=== PATIENT | male | born 1940 | race Caucasian/White ===

== ENCOUNTER → 2017-05-05 10:13 | Outpatient (CLI) | payer MEDICARE, SELFPAY ==
--- NOTE | 2017-05-05 10:18 | NM_ITS ---
CLINICAL: 77-year-old male presenting for evaluation of differential renal function. 99m Tc MAG3 RENAL SCINTIGRAPHY COMPARISON: None available FINDINGS: Following the intravenous administration of 10.8 mCi of 99m Tc MAG3, renal images reveal: 1. The flow study demonstrates mildly delayed arterial phase distribution of the radiopharmaceutical to the left kidney. Flow to the significantly hypotrophic right renal unit is significantly delayed and decreased. 2. Immediate static delayed nephrogram images depict relatively prompt tracer concentration demonstrated in the left kidney with markedly delayed and decreased uptake visualized the right kidney. Collecting structure visualization is identified at approximately 4 minutes following tracer injection and the left kidney and 5.5 minutes following tracer injection regarding the right renal unit. Washout of the radiopharmaceutical by the renal parenchyma of the left kidney appears qualitatively normal and delayed on inspection of the right kidney. Persisting collecting system activity is demonstrated in the right and left renal units during 40 minutes of sequential image acquisition. 3. The xtbqu-eb-[id number] ratio of total renal parenchymal function was calculated to be 6.0/94.0. NM/Renal Scan w/o Pharm Interven IMPRESSION: 1. There is relative preservation of left kidney renal parenchymal, cortical function. Cortical dysfunction is defined in the significantly hypotrophic right kidney as described above. Electronically Signed: Farshad Abrams DO at 13:11 EST Tel , Service support ,
== END ==
PROVIDERS: Family Provider Family Medicine; PCP Family Medicine
DX: I71.4 Abdominal aortic aneurysm, without rupture (principal)
CPT/HCPCS: 78707; A9562

== ENCOUNTER 2017-07-08 01:54 | Emergency (ER) | payer OTHER, SELFPAY ==
[2017-07-08 01:55] VITALS: BP 141/89; PULSE 66; RESP 16; TEMP 37.1; O2SAT 99; BMI 23.5
--- NOTE | 2017-07-08 02:10 | RAD_ITS ---
STUDY: X-RAY CHEST REASON FOR EXAM: Male, 77 years old. Defibrillator TECHNIQUE: PA and lateral COMPARISON: None. FINDINGS: Pacemaker leads are in proper position. The lungs are clear and expanded. There is no demonstrated pleural abnormality. Normal size heart. Normal mediastinum and jose carlos. Normal visualized pulmonary arteries. Normal visualized aortic arch and descending thoracic aorta. Normal visualized thoracic spine. Normal visualized ribs, clavicles, and shoulders. There is no demonstrated abnormality of the visualized soft tissue structures of the upper abdomen. RAD/Chest PA and Lateral IMPRESSION: Lungs are clear. There are NO infiltrates. There are NO effusions or pneumothoraces. Pacemaker leads are in proper position. Electronically Signed: Atul Richardson MD at 2:53 EDT , Service support ,
--- NOTE | 2017-07-08 02:10 | EKG12_ITS ---
Test Reason : CHEST Blood Pressure : / mmHG Vent. Rate : 064 BPM Atrial Rate : 064 BPM P-R Int : 112 ms QRS Dur : 186 ms QT Int : 524 ms P-R-T Axes : 084 -76 103 degrees QTc Int : 540 ms Atrial-sensed ventricular-paced rhythm Biventricular pacemaker detected Abnormal ECG Confirmed by NERI VICTORIA, FARAZ ([id number]), editor producer REGINA GONZALEZ ([id number]) on 07/09/2017 11:51:48 AM Referred By: QASIM Confirmed By:FARAZ HE MD
--- NOTE | 2017-07-08 02:12 | ED.VISSUMM ---
- ER Visit Summary Date of Service: 07/08/17 Chief Complaint: Defibrillator firing History of Present Illness: The patient is a 77 M presents for concerns of defibrillator firing approximately 15 minutes prior to arrival. Patient was asleep when he felt symptoms. History of congestive heart failure followed by Dr. Clarke. Original AICD was placed in 2006, states this new one has been placed in April 2016. Previous ICD has fired while he was awakened. Denies any current chest pain. No recent chest pain symptoms. No recent upper respiratory symptoms. No recent nausea, vomiting, diarrhea. Currently asymptomatic. Device is a [employer] device. Physical Examination: General: Alert and oriented ?3, no acute distress HEENT: Normocephalic, atraumatic. Moist mucosa membranes Neck: supple, nontender. Cardiovascular: Regular rate and rhythm, no murmurs. Device in the left upper chest. Respiratory: Normal breath sounds, symmetric, no distress Abdomen: Soft, nontender, nondistended Extremities: Nontender, no edema, pulses intact ?4 Neuro: no focal neurological deficits. Test Results: EKG: Biventricular pacing rate of 64, no ST or T-wave changes. Hemoglobin 11.9. Creatinine 1.59. Potassium 4.3. Troponin negative. Magnesium 2.2. Chest x-ray no acute process Emergency Department Course and Treatment: Patient vitals stable. Cardiac workup negative. Chronic kidney disease creatinine 1.59, baseline was 1.77 from previous. I did have his pacemaker interrogated, found to have no shocks. He has noted to be in atrial fibrillation, controlled by pacemaker. Threshold for CTs at 1 71 bpm, 200 bpm for ventricular fibrillation. Discussed with patient negative findings. 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 Return if any worsening symptoms. All questions were answered. Treatment Plan: [] Disposition: Discharge Impression: 1. Medical evaluation for concerns of AICD firing 2. History of atrial fibrillation 3. Chronic kidney disease This note was generated with [employer] dictation software. It may contain incorrect words, spelling, and punctuation that were not noted in review of the chart prior to signing ED Disposition - Plan for ED Patient: Disposition: Home or Assisted Living Chief Complaint: Chest Other Diagnosis: Well adult exam, Chronic kidney disease, History of atrial fibrillation Referrals: Ignacio Gilliam DO [Primary Care Provider] - Rolando Clarke MD [STAFF PHYSICIAN] - 5-7 Days Additional Instructions: No firing of AICD.
--- NOTE | 2017-07-08 02:12 | ED.RN ---
CALLED [facility] FOR REP AT THIS TIME
[2017-07-08 02:18] VITALS: BP 132/92; PULSE 61; RESP 16; O2SAT 98
[2017-07-08 02:28] LABS: Absolute Lymphocyte Count 1.46 X10^3/ul (0.83-4.51); Absolute Neutrophil Count 4.4 X10^3/uL (2.0-7.7); Basophil# 0.02 X10^3/uL; Basophil% 0.3 % (0-1); Eosinophil# 0.09 X10^3/uL; Eosinophils% 1.4 % (0-5); Hematocrit 36.5 % (40-54); Hemoglobin 11.9 g/dl (13.0-16.5); Lymphocyte # 1.46 X10^3/ul (4.0); Lymphocyte % 22.9 % (19-41); Mean Corp Hgb Conc 32.6 g/gl (32-36); Mean Corpuscular Volume 98.1 fL (80-94); Mean Platelet Vol. 11.7 fl (6.2-12.0); Monocyte# 0.36 X10^3/uL; Monocyte% 5.6 % (0-10); Neutrophil # 4.44 X10^3/uL (2.7-7.7); Neutrophil % 69.6 % (47-70); Platelet Count 145 K/mm3 (150-450); RBC Distribution Width CV 13.9 % (11.6-14.6); RBC Distribution Width SD 47.7 fl (35.1-43.9); Red Blood Count 3.72 M/mm3 (4.6-6.2); White Blood Count 6.4 K/mm3 (4.4-11.0)
[2017-07-08 02:35] LABS: POSITIVE COUNT NO; POSITIVE DIFFERENTIAL NO; POSITIVE MORPHOLOGY NO
--- NOTE | 2017-07-08 02:49 | ED.RN ---
[facility] called again working on back up rep at this time to return phone call
--- NOTE | 2017-07-08 02:54 | ED.RN ---
[facility] called back and will be in shortly
[2017-07-08 02:56] LABS: Anion Gap 8 (5-15); BUN 22 mg/dL (7-18); BUN/Creat Ratio 13.8 RATIO (10-20); Calcium,Total 8.4 mg/dL (8.5-10.1); Chloride 111 mmol/L (98-107); Creatinine, Serum 1.59 mg/dL (0.70-1.30); EST Glomerular Filtration Rate 45 mL/min (>60); Est Glom Filt Rate - Afr Amer 55 mL/min (>60); Estimated Creatinine Clearance 40.17 ml/min; Glucose 88 mg/dL (74-106); Magnesium 2.2 mg/dL (1.6-2.6); Potassium 4.3 mmol/L (3.5-5.1); Sodium Level 144 mmol/L (136-145)
[2017-07-08 03:58] VITALS: BP 127/93; PULSE 64; RESP 16; O2SAT 97
== END 2017-07-08 03:58 | disposition home or self-care (01) ==
PROVIDERS: Emergency Provider Emergency Medicine; Family Provider Family Medicine; PCP Family Medicine
DX: Z45.02 Encounter for adjustment and management of automatic implantable cardiac defibrillator (principal); I48.91 Unspecified atrial fibrillation; N18.9 Chronic kidney disease, unspecified; I50.9 Heart failure, unspecified; K21.9 Gastro-esophageal reflux disease without esophagitis; E78.00 Pure hypercholesterolemia, unspecified; I71.4 Abdominal aortic aneurysm, without rupture; E03.9 Hypothyroidism, unspecified; Z79.82 Long term (current) use of aspirin; Z79.899 Other long term (current) drug therapy
CPT/HCPCS: 71046; 80048; 83735; 84484; 85025; 93005; 99285; A4216

== ENCOUNTER 2017-08-24 13:04 | Emergency (ER) | payer MEDICARE, SELFPAY ==
[2017-08-24 13:05] VITALS: BP 102/79; PULSE 79; RESP 18; TEMP 37.1; O2SAT 100; BMI 22.6
--- NOTE | 2017-08-24 13:37 | EKG12_ITS ---
Test Reason : DIZZINESS Blood Pressure : / mmHG Vent. Rate : 085 BPM Atrial Rate : 087 BPM P-R Int : 000 ms QRS Dur : 142 ms QT Int : 444 ms P-R-T Axes : 000 -29 137 degrees QTc Int : 528 ms Atrial fibrillation with occasional ventricular-paced complexes Intraventricular conduction delay Paced ventricular beat Abnormal ECG Confirmed by NICHOLAS SANCHEZ ([id number]), industrial editor REGINA GONZALEZ ([id number]) on 09/06/2017 6:00:07 PM Referred By: JAKE Confirmed By:NICHOLAS SANCHEZ
--- NOTE | 2017-08-24 13:37 | CT_ITS ---
STUDY: CT BRAIN WITHOUT CONTRAST REASON FOR EXAM: Male, 77 years old. One month history of dizziness. RADIATION DOSAGE (If Supplied By Facility): CTDIvol = ( 44.99 ) mGy, DLP = ( 745.49 ) mGycm TECHNIQUE: Transaxial CT imaging of the brain was performed without administration of intravenous contrast material. Individualized dose optimization techniques were used for this CT. COMPARISON: Comparison is made with prior study dated July 10, 2015. FINDINGS: Normal soft tissue structures. Normal calvarium. There is mild cerebral atrophy with widening of the extra-axial spaces and ventricular dilatation. There are areas of decreased attenuation within the white matter tracts of the supratentorial brain, consistent with microvascular disease changes. Once again, there is evidence of focal encephalomalacia in the left frontal lobe as well as in the posterior aspect of the right parietal occipital lobes. This is unchanged. Normal basal ganglia and thalami. Normal brainstem. Normal cerebellum. There is no intracranial hemorrhage. There are no findings of an acute ischemic infarction. Calcification of the vertebral arteries as well as the cavernous portions of the internal carotid arteries bilaterally. Normal visualized paranasal sinuses. CT/Brain/Head without Contrast IMPRESSION: Chronic involutional changes of the brain. Stable encephalomalacia in the left frontal lobe and right posterior parietal occipital lobe. Electronically Signed: Hitesh Farley MD at 14:36 EDT Tel [phone], Service support ,
[2017-08-24 14:06] LABS: Basophil# 0.01 X10^3/uL; Basophil% 0.1 % (0-1); Eosinophil# 0.02 X10^3/uL; Eosinophils% 0.2 % (0-5); Hematocrit 39.6 % (40-54); Hemoglobin 12.7 g/dl (13.0-16.5); Lymphocyte % 10.9 % (19-41); Mean Corp Hgb Conc 32.1 g/gl (32-36); Mean Corpuscular Hgb 31.6 pg (27.0-32.0); Mean Corpuscular Volume 98.5 fL (80-94); Mean Platelet Vol. 11.5 fl (6.2-12.0); Monocyte% 4.8 % (0-10); Neutrophil # 6.95 X10^3/uL (2.7-7.7); Neutrophil % 83.9 % (47-70); Platelet Count 181 K/mm3 (150-450); RBC Distribution Width CV 14.1 % (11.6-14.6); RBC Distribution Width SD 49.7 fl (35.1-43.9); Red Blood Count 4.02 M/mm3 (4.6-6.2); White Blood Count 8.3 K/mm3 (4.4-11.0)
[2017-08-24] MEDS: 0.9% Normal Saline 1,000 ML 150 ML IV (14:09)
[2017-08-24 14:11] LABS: POSITIVE COUNT NO; POSITIVE DIFFERENTIAL NO; POSITIVE MORPHOLOGY NO
[2017-08-24 14:17] LABS: Anion Gap 9 (5-15); BUN 25 mg/dL (7-18); BUN/Creat Ratio 14.6 RATIO (10-20); Calcium,Total 8.4 mg/dL (8.5-10.1); Chloride 106 mmol/L (98-107); Creatinine, Serum 1.71 mg/dL (0.70-1.30); EST Glomerular Filtration Rate 41 mL/min (>60); Est Glom Filt Rate - Afr Amer 50 mL/min (>60); Estimated Creatinine Clearance 36.67 ml/min; Glucose 72 mg/dL (74-106); Potassium 4.5 mmol/L (3.5-5.1); Sodium Level 142 mmol/L (136-145)
[2017-08-24 14:26] VITALS: BP 106/76; PULSE 76; RESP 16; O2SAT 96
--- NOTE | 2017-08-24 15:31 | ED.DCSUM_ITS ---
- ER Visit Summary Date of Service: 08/24/17 Chief Complaint: Dizzy History of Present Illness: The patient is a 77 M with a history of prior stroke , coronary disease, high cholesterol, syncope, A. fib. He has an ICD. Patient reports more than a month history of dizziness been progressively worsening. His he feels somewhat off balance. He denies headache or vision change. He denies chest pain or shortness of breath. He thought his symptoms are secondary to seasonal allergies. He has tried a few doses of Claritin without improvement. Patient states his insurance changed and he can no longer see Dr. Gilliam who had been his primary care physician. Physical Examination: Vital signs are unremarkable. Patient sitting upright in bed no acute distress. Head and neck examination is normal. Heart is regular rate and rhythm. Palpable pulses are noted throughout. Lungs are clear with good air movement throughout. Abdomen is soft and nontender. Bowel sounds are noted. Extremity examination is unremarkable with full range of motion. Neurologic examination reveals no focal deficits. Test Results: CT head shows chronic involutional changes. Stable encephalomalacia of the left frontal lobe and right posterior parietal lobe are noted. EKG is A. fib with occasional paced beats. Rate is 85 bpm. Left bundle branch block is present. CBC was normal white count with hemoglobin 12.7. Chemistry studies are significant for BUN 25 and creatinine 1.71. This is his baseline when compared to prior records. Emergency Department Course and Treatment: Patient was given IV fluids here. On repeat evaluation is resting comfortably. He is asking to go home. Test results were discussed with him. 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 Clarke. He is also encouraged to call his insurance company to find a primary care physician locally. Treatment Plan: [] Disposition: Discharge Impression: Dizziness, uncertain etiology This note was generated with [employer] dictation software. It may contain incorrect words, spelling, and punctuation that were not noted in review of the chart prior to signing ED Disposition - Plan for ED Patient: Disposition: Home or Assisted Living Chief Complaint: Dizziness Instructions: ED Dizziness [facility] Referrals: Rolando Clarke MD [STAFF PHYSICIAN] - Additional Instructions: Check with your insurance provider to find a primary care doctor in this area.
[2017-08-24 15:42] VITALS: BP 108/76; PULSE 79; RESP 15; O2SAT 97
== END 2017-08-24 15:45 | disposition home or self-care (01) ==
PROVIDERS: Emergency Provider Emergency Medicine; Family Provider Family Medicine; PCP Family Medicine
DX: R42 Dizziness and giddiness (principal); G93.89 Other specified disorders of brain; I44.7 Left bundle-branch block, unspecified; I25.10 Atherosclerotic heart disease of native coronary artery without angina pectoris; E78.00 Pure hypercholesterolemia, unspecified; I48.91 Unspecified atrial fibrillation; E03.9 Hypothyroidism, unspecified; Z86.73 Personal history of transient ischemic attack (TIA), and cerebral infarction without residual deficits; Z95.810 Presence of automatic (implantable) cardiac defibrillator; Z95.1 Presence of aortocoronary bypass graft; Z87.891 Personal history of nicotine dependence; Z79.82 Long term (current) use of aspirin; Z79.899 Other long term (current) drug therapy
CPT/HCPCS: 70450; 80048; 85025; 93005; 96360; 96361; 99285; J7030; A4216

== ENCOUNTER → 2017-11-17 12:40 | Outpatient (CLI) | payer MEDICARE, SELFPAY ==
[2017-11-17 13:37] LABS: Absolute Lymphocyte Count 1.46 X10^3/ul (0.83-4.51); Absolute Neutrophil Count 7.9 X10^3/uL (2.0-7.7); Basophil# 0.01 X10^3/uL; Basophil% 0.1 % (0-1); Eosinophil# 0.04 X10^3/uL; Eosinophils% 0.4 % (0-5); Hematocrit 38.2 % (40-54); Lymphocyte # 1.46 X10^3/ul (4.0); Lymphocyte % 14.8 % (19-41); Mean Corp Hgb Conc 31.4 g/gl (32-36); Mean Corpuscular Hgb 30.4 pg (27.0-32.0); Mean Corpuscular Volume 96.7 fL (80-94); Mean Platelet Vol. 11.4 fl (6.2-12.0); Monocyte# 0.51 X10^3/uL; Monocyte% 5.2 % (0-10); Neutrophil # 7.85 X10^3/uL (2.7-7.7); Neutrophil % 79.3 % (47-70); POSITIVE COUNT NO; POSITIVE DIFFERENTIAL NO; POSITIVE MORPHOLOGY NO; Platelet Count 226 K/mm3 (150-450); RBC Distribution Width CV 14.2 % (11.6-14.6); RBC Distribution Width SD 48.3 fl (35.1-43.9); Red Blood Count 3.95 M/mm3 (4.6-6.2); White Blood Count 9.9 K/mm3 (4.4-11.0)
[2017-11-17 14:15] LABS: ALB/GLOB Ratio 0.6 RATIO (0.9-2.4); AST(SGOT) 17 U/L (15-37); Alanine Aminotransfer ALT/SGPT 19 U/L (16-61); Albumin, Serum 3.3 g/dL (3.2-5.0); Alkaline Phosphatase 93 U/L (45-117); Anion Gap 11 (5-15); BUN 31 mg/dL (7-18); BUN/Creat Ratio 18.7 RATIO (10-20); Calcium,Total 9.5 mg/dL (8.5-10.1); Chloride 109 mmol/L (98-107); Creatinine, Serum 1.66 mg/dL (0.70-1.30); EST Glomerular Filtration Rate 43 mL/min (>60); Est Glom Filt Rate - Afr Amer 52 mL/min (>60); Globulin 5.2 g/dL (2.2-4.2); Glucose 95 mg/dL (74-106); Potassium 5.6 mmol/L (3.5-5.1); Protein, Total 8.5 g/dL (6.4-8.2); Sodium Level 141 mmol/L (136-145)
== END ==
PROVIDERS: Family Provider Family Medicine; PCP Family Medicine; Visit Provider Family Medicine
DX: R19.7 Diarrhea, unspecified (principal)
CPT/HCPCS: 36415; 80053; 85025

== ENCOUNTER 2017-12-04 04:44 | Emergency (ER) | payer MEDICARE, SELFPAY ==
[2017-12-04 04:45] VITALS: BP 144/102; PULSE 77; RESP 22; TEMP 36.7; O2SAT 98; BMI 22.8
[2017-12-04] MEDS: Morphine 4 MG/ML Syringe IV (05:07)
[2017-12-04] MEDS: Ondansetron 4 MG/2 ML Vial IV (05:07)
[2017-12-04 05:26] LABS: Absolute Lymphocyte Count 0.91 X10^3/ul (0.83-4.51); Absolute Neutrophil Count 11.6 X10^3/uL (2.0-7.7); Basophil# 0.01 X10^3/uL; Basophil% 0.1 % (0-1); Eosinophil# 0.03 X10^3/uL; Eosinophils% 0.2 % (0-5); Hematocrit 34.9 % (40-54); Lymphocyte # 0.91 X10^3/ul (4.0); Mean Corp Hgb Conc 31.5 g/gl (32-36); Mean Corpuscular Hgb 29.7 pg (27.0-32.0); Mean Corpuscular Volume 94.3 fL (80-94); Monocyte# 0.45 X10^3/uL; Monocyte% 3.5 % (0-10); Neutrophil # 11.58 X10^3/uL (2.7-7.7); Neutrophil % 89.1 % (47-70); POSITIVE COUNT NO; POSITIVE DIFFERENTIAL NO; POSITIVE MORPHOLOGY NO; Platelet Count 208 K/mm3 (150-450); RBC Distribution Width CV 14.1 % (11.6-14.6); RBC Distribution Width SD 48.5 fl (35.1-43.9)
[2017-12-04 05:38] LABS: ALB/GLOB Ratio 0.7 RATIO (0.9-2.4); AST(SGOT) 13 U/L (15-37); Alanine Aminotransfer ALT/SGPT 18 U/L (16-61); Albumin, Serum 3.2 g/dL (3.2-5.0); Alkaline Phosphatase 93 U/L (45-117); Anion Gap 13 (5-15); BUN 25 mg/dL (7-18); BUN/Creat Ratio 17.1 RATIO (10-20); Calcium,Total 8.9 mg/dL (8.5-10.1); Chloride 107 mmol/L (98-107); Creatinine, Serum 1.46 mg/dL (0.70-1.30); EST Glomerular Filtration Rate 50 mL/min (>60); Est Glom Filt Rate - Afr Amer 60 mL/min (>60); Estimated Creatinine Clearance 40.78 ml/min; Globulin 4.9 g/dL (2.2-4.2); Glucose 121 mg/dL (74-106); Lipase 126 U/L (73-393); Potassium 4.1 mmol/L (3.5-5.1); Protein, Total 8.1 g/dL (6.4-8.2); Sodium Level 142 mmol/L (136-145)
[2017-12-04 06:36] LABS: Bacteria 0 SEEN /hpf (None Seen); Mucous, Urine 0 SEEN /hpf (<or=2+); Red Blood Cells-Urine 0 SEEN /hpf (0-5)
--- NOTE | 2017-12-04 06:37 | ED.VISSUMM ---
- ER Visit Summary Date of Service: 12/04/17 Chief Complaint: Left lower quadrant pain History of Present Illness: The patient is a 77 M presenting with left lower quadrant pain. Patient states this started yesterday. Gradually worsened throughout the day. Pain is in the left lower quadrant. He has not had similar symptoms in the past. He has had nausea and vomiting. He denies diarrhea or constipation. Denies urinary complaints. Denies chest pain. Denies fever. Physical Examination: Vitals are stable. Patient is afebrile. Alert no acute distress. HEENT exam is unremarkable. Neck is supple. Lungs are clear and equal bilaterally. Heart is regular rate and rhythm. Abdomen is soft left lower quadrant tenderness with no rebound or guarding Extremities are unremarkable. Skin is warm and dry. No focal neurologic deficit. Remainder of exam is unremarkable. Emergency Department Course and Treatment: CBC shows a white count of 13.0, hemoglobin 11.0. Chemistry show glucose 121, BUN 25, creatinine 1.46. Lipase is normal. Patient was given morphine, Zofran IV. Urinalysis is contaminated. CT abdomen and pelvis shows there is no acute abdomen and pelvic pathology. Abdominal aortic aneurysm infrarenal, fusiform with bilobed contour and component of mild endoleak likely secondary to retrograde enhancement of inferior mesenteric artery and lumbar arteries. Abdominal aortic aneurysm with extension into the left common iliac artery segment. Enhancement of the celiac artery, superior mesenteric artery and left renal artery all of which are stented. No periaortic leak or retroperitoneal hematoma. Colonic diverticulosis, cholelithiasis, coronary artery disease, cardiac enlargement, vascular congestion, severe right renal involution, degenerative changes, small fat-containing umbilical hernia felt to be nonacute findings. Findings were discussed with the patient. He has follow-up scheduled in [place] in December for his postoperative check. He is feeling improved in the emergency department. He will follow-up with his primary care physician. He is advised to return to ED if he has any worsening complaints. Disposition: Discharged home Impression: Abdominal pain This note was generated with [employer] dictation software. It may contain incorrect words, spelling, and punctuation that were not noted in review of the chart prior to signing ED Disposition - Plan for ED Patient: Chief Complaint: Flank Pain Referrals: Ignacio Gilliam DO [Primary Care Provider] -
[2017-12-04 06:44] VITALS: BP 126/82; PULSE 73; RESP 20; O2SAT 95
[2017-12-04 07:08] LABS: Color, Urine Yellow (Yellow); Glucose, Dipstick Normal (Normal); Urine Clarity Clear (Clear)
[2017-12-04 07:09] LABS: Ketone-Dipstick Negative (Negative); Leukocyte Esterase-Dipstick 25 /ul (Negative); Nitrite-Dipstick Negative (Negative); Occult Blood-Urine Negative /ul (Negative); Protein-Dipstick 30 mg/dl (Negative); Urine Bilirubin Dipstick Negative (Negative); Urine Urobilinogen Normal (Normal); Urine pH 6.5 (5.0 - 8.0)
[2017-12-04 07:10] LABS: Squamous Epithelial Cells - UA 10-25 SEEN /hpf (0-5); White Blood Cells 5-10 SEEN /hpf (0-5)
[2017-12-04 07:45] VITALS: BP 145/90; PULSE 73; RESP 18; O2SAT 99
--- NOTE | 2017-12-04 07:48 | ED.DEP ---
ED Disposition - Plan for ED Patient: Chief Complaint: Flank Pain Instructions: ED Abdominal Pain Unkn Cause Referrals: Ignacio Gilliam DO [Primary Care Provider] -
== END 2017-12-04 07:53 | disposition home or self-care (01) ==
PROVIDERS: Emergency Provider Emergency Medicine; Family Provider Family Medicine; PCP Family Medicine
DX: R10.32 Left lower quadrant pain (principal); I71.4 Abdominal aortic aneurysm, without rupture; K57.30 Diverticulosis of large intestine without perforation or abscess without bleeding; K80.20 Calculus of gallbladder without cholecystitis without obstruction; K42.9 Umbilical hernia without obstruction or gangrene; I25.10 Atherosclerotic heart disease of native coronary artery without angina pectoris; I25.2 Old myocardial infarction; E78.00 Pure hypercholesterolemia, unspecified; I48.91 Unspecified atrial fibrillation; Z86.73 Personal history of transient ischemic attack (TIA), and cerebral infarction without residual deficits; Z95.1 Presence of aortocoronary bypass graft; Z79.82 Long term (current) use of aspirin; Z79.899 Other long term (current) drug therapy
CPT/HCPCS: 74177; 80053; 81001; 83690; 85025; 96361; 96374; 96375; 99285; J7040; Q9967; A4216; J2405

== ENCOUNTER → 2017-12-22 15:30 | Outpatient (CLI) | payer MEDICARE, SELFPAY ==
[2017-12-22 17:07] LABS: ALB/GLOB Ratio 0.6 RATIO (0.9-2.4); AST(SGOT) 10 U/L (15-37); Alanine Aminotransfer ALT/SGPT 16 U/L (16-61); Alkaline Phosphatase 84 U/L (45-117); Anion Gap 9 (5-15); BUN 22 mg/dL (7-18); Calcium,Total 8.8 mg/dL (8.5-10.1); Chloride 109 mmol/L (98-107); Creatinine, Serum 1.47 mg/dL (0.70-1.30); EST Glomerular Filtration Rate 49 mL/min (>60); Est Glom Filt Rate - Afr Amer 60 mL/min (>60); Globulin 4.7 g/dL (2.2-4.2); Glucose 79 mg/dL (74-106); Potassium 4.3 mmol/L (3.5-5.1); Protein, Total 7.7 g/dL (6.4-8.2); Sodium Level 141 mmol/L (136-145)
== END ==
PROVIDERS: Family Provider Family Medicine; PCP Family Medicine
DX: R19.7 Diarrhea, unspecified (principal)
CPT/HCPCS: 36415; 80053

== ENCOUNTER 2018-01-28 12:00 | Outpatient (RCR) | payer MEDICARE, SELFPAY ==
--- NOTE | 2017-12-29 19:21 | HP.PTEVAL ---
Patient's Visit Information MAYCOL MARTINEZ is a 77 year old M referred to Physical Therapy by Ignacio Gilliam with a diagnosis of Central Vertigo. Date of Evaluation: 12/29/17 Physical Therapist: Mercedes Tapia - Visit Plan Frequency: 1-2x /Week Duration: 2 Months Plan: 1-2X/ week for 8-12 weeks for VOR exercises starting very slowly and then progressing to more functional exercises. Work on balance and test FGA as well. - Subjective Subjective: Pt can not remember if he woke up this way or if it was gradual but it all started at least a month ago. He complains of constant dizziness and frontal head sensation. Pt had an abdominal surgery 3 months ago and pt needs to fly soon to [facility] for a re-check. Pts reports that the pt is dizzy all the time and he is not doing anything at home but sitting. Pt reports that he is dizzy all the time and it gets worse sometimes when he goes to stand up. His reports that he watches TV but he can not recall when asked what just happened on the show. He reports that he watches a blank spot on the wall as watching the TV makes the front of his head hurt worse. He reports that when he is riding in a car he looks at a spot inside the car and does not look out as it makes his head hurt worse. Pt admited that looking at me taking while shaking my head and talking with my hands increases his head pain. Pts reports that he gets angry and frustrated a lot. Pt has no appetite and has lost a lot of weight. - Objective Gait: Pt needs to reach out to hold onto his , therapist, or wall to feel secure. Pt walks with eyes focused on the ground as he walks without any head or eye movement. Had the pt walk with turning his head to the R and L and he instandly had to stop and he grabbed his head. Smooth Pursuit horzontal ( head is still and eyes focused on the moving object): Pt was able to follow for approx 5 seconds and then pt grabbed a hold of the table and stopped tracking. Pt said that that made his head hurt worse and his dizziness worse. Saccades horizontal: pt was able to move his eyes back and forth X 10 times and then he had to stop due to his head having increase senstaion. He then held his head in his hands and put his head down by his knees sitting in a chair until his head stopped. Held the computer screen in front of the pt and then slowly scrolled down and then pt instantly grabbed the table and said to stop the screen from moving. - Goals Goal 1:: I HEP Goal Time Frame: 4-6 Weeks Goal 2:: Be able to walk and turn head X 4 directions without having to reach out to touch the wall or thereapist and not have extreme dizziness Goal Time Frame: 4-6 Weeks Goal 3:: Abolish the head sensation that the pt is having Goal Time Frame: 4-6 Weeks Goal 4:: Test FGA and set goals when appropriate. - Rehabilitation Potential Rehabilitation Potential: Good - Anticipated Interventions Patient/Client Instruction: Educate patient on: Condition, Plan of Care For the Purpose of:: To increase ROM, To improve nutrient delivery to tissue, To improve muscle performance and motor function, To improve ability to perform ADL's, To increase tolerance to activity/condition/position, To improve performance and independence with ADL's, To decrease level of supervision to perform tasks, To improve ability of physical actions for home/community/work/leisure, To improve gait and locomotor functions, To improve balance, To improve safety with gait Therapeutic Exercise to Include: Strength training, Balance training, Body mechanics, Postural training, Gait and locomotor training, Neuromotor development, Active ROM For the Purpose of:: To increase ROM, To improve nutrient delivery to tissue, To improve muscle performance and motor function, To improve ability to perform ADL's, To increase tolerance to activity/condition/position, To improve performance and independence with ADL's, To decrease level of supervision to perform tasks, To improve ability of physical actions for home/community/work/leisure, To improve gait and locomotor functions, To improve health of tissue, To decrease soft tissue restriction, To increase flexibility/ROM, To improve balance Functional Training to Include: Gait training For the Purpose of:: To improve gait and locomotor functions, To improve safety with gait Thank you for the opportunity to evaluate your patient. For Medicare and Medicare HMO plans, please review the plan of care and approve it. It will need to be FAXED BACK to us at [phone] for Medicare purposes. Please let me know if there are questions or concerns regarding this plan of care. Physician Signature: Date:
--- NOTE | 2018-06-07 10:36 | HP.PTDCNRP_ITS ---
HP - Discharge Summary (1) - Patient Information MAYCOL MARTINEZ was seen in my office for initial evaluation on 12/29/17. The following Plan of Care was established for this patient: Initial Frequency: 1-2x /Week Initial Duration: 2 Months - Anticipated Interventions Patient/Client Instruction: Educate patient on: Condition, Plan of Care For the Purpose of:: To increase ROM, To improve nutrient delivery to tissue, To improve muscle performance and motor function, To improve ability to perform ADL's, To increase tolerance to activity/condition/position, To improve performance and independence with ADL's, To decrease level of supervision to perform tasks, To improve ability of physical actions for home/community/work/leisure, To improve gait and locomotor functions, To improve balance, To improve safety with gait Therapeutic Exercise to Include: Strength training, Balance training, Body mechanics, Postural training, Gait and locomotor training, Neuromotor development, Active ROM For the Purpose of:: To increase ROM, To improve nutrient delivery to tissue, To improve muscle performance and motor function, To improve ability to perform ADL's, To increase tolerance to activity/condition/position, To improve performance and independence with ADL's, To decrease level of supervision to perform tasks, To improve ability of physical actions for home/commun ity/work/leisure, To improve gait and locomotor functions, To improve health of tissue, To decrease soft tissue restriction, To increase flexibility/ROM, To improve balance Functional Training to Include: Gait training For the Purpose of:: To improve gait and locomotor functions, To improve safety with gait This patient was last seen in our office 01/28/18. Pertinent comments regarding their Physical therapy will appear below: [facility] At this point I will be discontinuing this patient from physical therapy. I w ould be happy to see this patient again in the future if found appropriate by the physician. Thank you! Mercedes Tapia, MPT
== END 2018-01-28 17:00 | disposition home or self-care (01) ==
LOC: PT 12:00
PROVIDERS: Family Provider Family Medicine; PCP Family Medicine; Referring Provider Family Medicine; Visit Provider Family Medicine
DX: H81.49 Vertigo of central origin, unspecified ear (principal)
CPT/HCPCS: 97110; 97140; 97162; 97530

== ENCOUNTER → 2018-02-04 12:41 | Outpatient (CLI) | payer MEDICARE, SELFPAY ==
[2018-02-04 13:43] LABS: Hematocrit 33.1 % (40-54); Hemoglobin 10.1 g/dl (13.0-16.5); Mean Corp Hgb Conc 30.5 g/gl (32-36); Mean Corpuscular Hgb 29.3 pg (27.0-32.0); Mean Corpuscular Volume 95.9 fL (80-94); Mean Platelet Vol. 11.2 fl (6.2-12.0); Platelet Count 191 K/mm3 (150-450); RBC Distribution Width CV 16.7 % (11.6-14.6); RBC Distribution Width SD 55.7 fl (35.1-43.9); Red Blood Count 3.45 M/mm3 (4.6-6.2); White Blood Count 7.6 K/mm3 (4.4-11.0)
[2018-02-04 13:44] LABS: Scan Indicated on CBC? Y/N NO
[2018-02-04 14:12] LABS: ALB/GLOB Ratio 0.7 RATIO (0.9-2.4); AST(SGOT) 23 U/L (15-37); Alanine Aminotransfer ALT/SGPT 27 U/L (16-61); Alkaline Phosphatase 94 U/L (45-117); Anion Gap 8 (5-15); BUN 38 mg/dL (7-18); BUN/Creat Ratio 24.8 RATIO (10-20); Calcium,Total 8.5 mg/dL (8.5-10.1); Chloride 112 mmol/L (98-107); Creatinine, Serum 1.53 mg/dL (0.70-1.30); EST Glomerular Filtration Rate 47 mL/min (>60); Est Glom Filt Rate - Afr Amer 57 mL/min (>60); Globulin 4.5 g/dL (2.2-4.2); Glucose 99 mg/dL (74-106); Potassium 4.8 mmol/L (3.5-5.1); Protein, Total 7.5 g/dL (6.4-8.2); Sodium Level 142 mmol/L (136-145)
[2018-02-04 14:13] LABS: Vitamin B12 1666 pg/mL (211-911); Vitamin D,25 Hydroxy 18.6 ng/mL (29.95-100.01)
== END ==
PROVIDERS: Family Provider Family Medicine; PCP Family Medicine; Referring Provider Family Medicine; Visit Provider Family Medicine
DX: R53.83 Other fatigue (principal); E55.9 Vitamin D deficiency, unspecified
CPT/HCPCS: 36415; 80053; 82306; 82607; 82746; 85027

== ENCOUNTER 2018-02-16 16:29 | Inpatient (IN) | payer MEDICARE, SELFPAY ==
[2018-02-16] VITALS (8 sets, daily range): BP systolic 107–112; BP diastolic 65–84; PULSE 81–93; RESP 17–22; TEMP 36.2–36.3; O2SAT 97; BMI 24.2; BMI 23.4; BMI 22.8
--- NOTE | 2018-02-16 17:05 | EKG12_ITS ---
Test Reason : DYSRHYTHMIA Blood Pressure : / mmHG Vent. Rate : 090 BPM Atrial Rate : 083 BPM P-R Int : 000 ms QRS Dur : 164 ms QT Int : 458 ms P-R-T Axes : 000 -78 091 degrees QTc Int : 560 ms Sinus rhythm 1st degree AV block Left axis deviation Left bundle branch block Abnormal ECG Confirmed by NERI VICTORIA, FARAZ ([id number]), associate entertainment editor REGINA GONZALEZ ([id number]) on 02/18/2018 12:04:42 PM Referred By: CHELSEA Confirmed By:FARAZ HE MD
--- NOTE | 2018-02-16 17:08 | RAD_ITS ---
STUDY: X-RAY CHEST REASON FOR EXAM: Male, 77 years old. Chest pain TECHNIQUE: A single frontal view of the chest was obtained. COMPARISON: July 08, 2017 FINDINGS: The lungs are underaerated. There are increased markings in both lung bases. There is no demonstrated pleural abnormality. There is moderate enlargement of the cardiac silhouette. Sternotomy wires are present. A pacing device is again seen in the left chest. There are surgical clips in the mediastinum. The central vessels are indistinct. There is atherosclerotic calcification of the thoracic aorta. A stent projects over the right heart. There are diffuse degenerative changes of the visualized spine. There are degenerative changes in both shoulders. An aortic stent graft is now visualized in the upper abdomen. RAD/Chest 1 View (Portable) IMPRESSION: There is moderate enlargement of the cardiac silhouette with vascular congestion. There is no obvious effusion. There is bibasilar atelectasis. Electronically Signed: Starla Giles MD at 17:51 EST Tel Direct: [phone], Service support ,
--- NOTE | 2018-02-16 17:08 | ED.VISSUMM ---
- ER Visit Summary Date of Service: 02/16/18 Chief Complaint: Generalized weakness History of Present Illness: The patient is a 77 M history of prior CVAs, CAD, SD with prior AAA repair. History of anemia. Prior CABG. Per his cigarette a other she states the last 3 weeks or so which is been very weak and wanting to sleep more. He has had nausea without vomiting. Shortness of breath and cough. No chest pain. No abdominal pain no melena. He is on Coumadin. Physical Examination: Older male. No acute distress. Vital signs are stable. He appears pale. The pulse ox was not picking up well. HEENT exam pale otherwise unremarkable. No facial droop. Neck nontender. No lymphadenopathy. Lungs clear to auscultation bilaterally. Heart regular rhythm no murmur. Abdomen soft nontender. Normal bowel sounds no peritoneal signs. He is moving all 4 extremities. Calves are nontender without edema nor cords. Neurologically he is awake and alert. He is answering questions. He is following commands. No focal motor deficits. Normal motor strength in both upper and lower extremities. Test Results: Chest x-ray shows cardiomegaly. Left-sided defibrillator. EKG shows a rate of 90 with a left bundle branch block and unspecified rhythm. White count 14.7 without a source of infection. Hemoglobin is 11.110 electrolytes show sodium 133. Potassium is elevated 6.1. CO2 is 12 17 BUN of 70 and creatinine 3.0 consistent with acute renal failure. He is on Coumadin his PT is 117 his INR 16. UA is pending. Troponin 0 0.066. Blood gases a pH 7.34 with a PO2 of 130 PCO2 of 14 and a bicarb of 8. Emergency Department Course and Treatment: Older male that is pale with generalized weakness. There is acute renal failure and hyperkalemia and will be given IV fluids. For the hyperkalemia treated with IV bicarbonate, IV fluids, insulin and dextrose. Also calcium gluconate. He will be given oral vitamin K for his coagulopathy. Treatment Plan: I spoke to the hospitalist Dr. Chaudhary and he is evaluating the patient for PCU versus ICU. I have already discussed admission and test results with the patient and his . Disposition: admission Impression: Acute generalized weakness Acute renal failure Acute dehydration. Acute hyperkalemia Acute severe coagulopathy on Coumadin Critical care time 35 minutes. This note was generated with Dragon dictation software. It may contain incorrect words, spelling, and punctuation that were not noted in review of the chart prior to signing ED Disposition - Plan for ED Patient: Chief Complaint: Weakness Referrals: Ignacio Gilliam DO [Primary Care Provider] -
[2018-02-16 17:38] LABS: Prothrombin Time (Protime)PT. 117.3 SECONDS (11.7-14.9)
[2018-02-16 17:47] LABS: Anion Gap 17 (5-15); BUN 78 mg/dL (7-18); BUN/Creat Ratio 25.3 RATIO (10-20); Calcium,Total 8.5 mg/dL (8.5-10.1); Chloride 104 mmol/L (98-107); Creatinine, Serum 3.08 mg/dL (0.70-1.30); EST Glomerular Filtration Rate 21 mL/min (>60); Est Glom Filt Rate - Afr Amer 25 mL/min (>60); Estimated Creatinine Clearance 20.09 ml/min; Glucose 104 mg/dL (74-106); Potassium 6.1 mmol/L (3.5-5.1); Sodium Level 133 mmol/L (136-145)
--- NOTE | 2018-02-16 17:52 | ED.RN ---
dr. perrin aware of INR 16.0 and PT 117.3
[2018-02-16 17:59] LABS: Absolute Lymphocyte Count 0.89 X10^3/ul (0.83-4.51); Absolute Neutrophil Count 13.1 X10^3/uL (2.0-7.7); Basophil# 0.01 X10^3/uL; Basophil% 0.1 % (0-1); Hemoglobin 11.1 g/dl (13.0-16.5); Lymphocyte # 0.89 X10^3/ul (4.0); Lymphocyte % 6.1 % (19-41); Mean Corpuscular Hgb 28.1 pg (27.0-32.0); Mean Corpuscular Volume 93.7 fL (80-94); Mean Platelet Vol. 11.4 fl (6.2-12.0); Monocyte# 0.68 X10^3/uL; Monocyte% 4.6 % (0-10); Neutrophil # 13.07 X10^3/uL (2.7-7.7); Platelet Count 244 K/mm3 (150-450); RBC Distribution Width CV 17.2 % (11.6-14.6); RBC Distribution Width SD 58.2 fl (35.1-43.9); Red Blood Count 3.95 M/mm3 (4.6-6.2); White Blood Count 14.7 K/mm3 (4.4-11.0)
[2018-02-16 18:01] LABS: Base Excess -18 mmol/L (-2 to +2); Blood Gas Specimen Type ART; O2 Delivery Device Nasal Can; PO2 130 mmHG (75-100); SITE R Radial; SO2 99 % (95-99); Time Given 1744; Total Carbon Dioxide 8 mmol/L; pCO2 14.6 mmHg (35-45); pH 7.34 (7.35-7.45)
[2018-02-16 18:04] LABS: POSITIVE COUNT NO; POSITIVE DIFFERENTIAL NO; POSITIVE MORPHOLOGY NO
[2018-02-16] MEDS: 0.9% Normal Saline 1,000 ML 999 ML IV (18:15)
[2018-02-16] MEDS: Dextrose 50%-Water 25 GM/50 ML DISP.SYRIN IV (18:38)
[2018-02-16] MEDS: Sodium Bicarbonate 8.4% 50 ML Syringe 50 MEQ IV (18:38)
[2018-02-16] MEDS: Calcium Gluconate 1 GM/10 ML Vial IV (18:39)
--- NOTE | 2018-02-16 19:32 | PCM.HP.STD ---
Problem List (1) Generalized weakness Status: Acute (2) Decreased oral intake Status: Acute History of Present Illness Date of Admission: 02/16/18 Chief Complaint: Decreased oral intake, generalized weakness The patient is a 77 year old M was seen in the emergency room at [facility] with a chief complaint of generalized weakness and poor oral intake, information was difficult to obtain from the due to cognitive issues, the patient is able to respond to most questions appropriately but appears weak and lethargic. It is likely has metabolic encephalopathy it is unknown how long the patient's poor oral intake is been going on, the stated to be initially that he is not done well over the last 3 months but she was nonspecific about the timeframe that he was unable to eat or drink. Patient had a repair of an aortic aneurysm done in [place] using an experimental bifurcated stent approximately 3 months ago, he was shipped from the [facility] by air down to the hospital in [place] where the stent was placed and then he was flown back to [place] to return to [place]. I talked to his remote sensing advisor Dr. Clarke by phone this evening, he states the patient has an ischemic cardiomyopathy with an EF of 20%, initially it was relayed to me by the emergency room physician that the patient was taking Aldactone but according to Dr. Clarke, he has no record that the patient was on Aldactone. Workup in the emergency room included a white blood cell count which was elevated at 14.7, hemoglobin was 11.1, INR was 16, BMP was remarkable for a potassium of 6.1, BUN of 78, bicarbonate of 12, and a creatinine of 3.08. Patient had an arterial blood gas performed on 2 L nasal cannula, it showed a pH of 7.34, PCO2 of 14.6, and a PO2 of 130. EKG showed underlying atrial fibrillation with occasional paced beats. Chest x-ray showed cardiomegaly without evidence of congestive heart failure. Troponin was 0.066. Patient was unable to give a urine sample, I did not feel it was fang to insert a Deras catheter due to his elevated INR, bladder scan showed only approximately 33 mL's of urine in the bladder. Patient was given 10 mg of vitamin K IV in the emergency room, he had calcium gluconate administered as well as IV D50 and IV insulin. Patient was also given IV bicarbonate in the emergency room. Patient will be admitted to PCU, nephrology was consulted and I talked with them by phone tonight, they recommended a bicarb drip, labs will be monitored, the bicarb drip will be run at 75ml an hour to avoid CHF. I do not feel the patient needs enzymes cycled. Past Medical History Past Medical History (Chronic Problems): Chronic Problems Anxiety and depression (Chronic) CAD (coronary artery disease) (Chronic) ICD (implantable cardioverter-defibrillator) in place (Chronic) CVA (cerebral infarction) (Chronic) Hyperlipidemia (Chronic) Hypothyroidism (Chronic) Systolic heart failure (Chronic) Chronic atrial fibrillation (Chronic) S/P CABG x 3 (Chronic) Pacemaker (Chronic) Allergies No Known Allergies Allergy (Verified 02/16/18 16:35) Home Medications: Ambulatory Orders Medication Instructions Recorded Paroxetine HCl [Paxil] 40 mg PO QHS 05/11/15 Atorvastatin Calcium [Lipitor] 40 mg PO QHS 11/20/16 Levothyroxine [Synthroid] 175 mcg PO DAILY 11/20/16 Aspirin 81 mg PO DAILY #1 tab.chew 11/22/16 Metoprolol Tartrate [Lopressor 25 mg PO BID #60 tablet 11/22/16 (beta rambo)] Amiodarone HCl 200 mg PO DAILY 02/16/18 Aspirin E.C. [Ecotrin] 81 mg PO DAILY@0800 02/16/18 Cholecalciferol (Vitamin D3) 2,000 unit PO DAILY 02/16/18 [Vitamin D3] Melatonin 10 mg PO DAILY 02/16/18 Spironolactone 25 mg PO DAILY 02/16/18 Warfarin [Coumadin (PBKC)] 4 mg PO DAILY 02/16/18 Surgical History: - - CABG x 3, PCI, T+A, Pacemaker/ICD, aortic aneurysm stenting 2017 (?October) Psychiatric History: Anxiety, Depression Lives: Spouse/ Significant Other Smoking Status: Former smoker Tobacco Use: Cigarettes Alcohol: None Drugs: None - *Family History Maternal History Items: Heart Disease, Stroke Paternal History Items: Heart Disease Review of Systems Comment: Complete review of systems was unobtainable due to the patient's metabolic encephalopathy and lethargy, he was able to provide some medical information, is unable to provide medical information due to cognitive impairment, information was obtained from the patient's medical record and Dr. Clarke his remote sensing advisor VTE Information - Inpt Only VTE Present on Admission: No VTE Mechan Device Prophylaxis: None VTE Pharm Prophylaxis ordered?: No Reason prophylaxis not ordered:: Medical Contraindication - coagulopathy Patient Problems: Active and Suspected Problems Generalized weakness (Acute) Decreased oral intake (Acute) - Physical Exam General: Oriented x3, Cooperative, Lethargic, - - Patient answers some questions appropriately but is a poor informant overall HEENT: Atraumatic, PERRLA, EOMI, Normocephalic Oral: Dry Mucosa Neck: Supple, No JVD, Negative Carotid Bruits, No Nuchal Rigidity, Trachea Midline, Thyroid Normal Size and Texture Lungs: Clear to auscultation, Normal air movement, No rhonchi, No wheeze, No rales Cardiovascular: No murmurs, PMI Normal, Irregular Rate, No rub noted Abdomen: Bowel Sounds Present, Soft, Non Tender, Non-Distended, No hernias noted Extremities: No clubbing, No cyanosis, Capillary Refill Less than 3 Seconds, Edema - +1-2 mm pitting edema is noted over the ankles bilaterally Skin: No rashes, No breakdown Musculoskeletal: No Tenderness to Palpation of Joints or Extremities Neurological: Cranial nerves II-XII grossly intact, Neuro grossly intact, Sensory exam intact to light touch and pain Psych/Mental Status: - - Patient appears lethargic, he was able to answer some questions appropriately but is overall a poor informant Vital Signs Temp Pulse Resp BP 97.2 F L 84 17 109/84 H 02/16/18 16:31 02/16/18 19:18 02/16/18 19:18 02/16/18 19:18 Oxygen Flow Rate (L/min) 2 Oxygen Delivery Method Nasal Cannula Weight: 74.5 kg Body Mass Index (BMI) 24.2 Laboratory Tests Past 24 Hrs 02/16/18 02/16/18 02/16/18 16:46 16:46 16:46 WBC 14.7 H RBC 3.95 L Hgb 11.1 L Hct 37.0 L MCV 93.7 MCH 28.1 MCHC 30.0 L RDW 17.2 H RDW Differential 58.2 H Plt Count 244 MPV 11.4 Immature Gran % (Auto) 0.200 Neut % (Auto) 89.0 H Lymph % (Auto) 6.1 L Gates % (Auto) 4.6 Eos % (Auto) 0.0 Baso % (Auto) 0.1 Absolute Neuts (auto) 13.1 H Absolute Lymphs (auto) 0.89 Total Counted Not Reportable PT 117.3 H INR 16.0 H* Specimen Type Sample Site pH Bicarbonate Actual POC Total CO2 Base Excess O2 Saturation ABG pCO2 ABG pO2 Dm Test O2 Delivery Device Liter Flow Blood Gas Notified Whom Blood Gas Notified Time Sodium 133 L Potassium 6.1 H* Chloride 104 Carbon Dioxide 12.0 L Anion Gap 17 H BUN 78 H Creatinine 3.08 H Estim Creat Clear Calc 20.09 Est GFR (MDRD) Af Amer 25 L Est GFR (MDRD) Non-Af 21 L BUN/Creatinine Ratio 25.3 H Glucose 104 Calcium 8.5 Troponin I 0.066 H 02/16/18 17:50 WBC RBC Hgb Hct MCV MCH MCHC RDW RDW Differential Plt Count MPV Immature Gran % (Auto) Neut % (Auto) Lymph % (Auto) Gates % (Auto) Eos % (Auto) Baso % (Auto) Absolute Neuts (auto) Absolute Lymphs (auto) Total Counted PT INR Specimen Type ART Sample Site R Radial pH 7.34 L Bicarbonate Actual 8.0 L POC Total CO2 8 Base Excess -18 L O2 Saturation 99 ABG pCO2 14.6 L* ABG pO2 130 H Dm Test NA O2 Delivery Device Nasal Can Liter Flow 2.0 Blood Gas Notified Whom ED MD Blood Gas Notified Time 1744 Sodium Potassium Chloride Carbon Dioxide Anion Gap BUN Creatinine Estim Creat Clear Calc Est GFR (MDRD) Af Amer Est GFR (MDRD) Non-Af BUN/Creatinine Ratio Glucose Calcium Troponin I Assessment/Plan All Active Problems Generalized weakness (Acute) Decreased oral intake (Acute) DIC (disseminated intravascular coagulation) (Resolved) Severe sepsis (Resolved) UTI (urinary tract infection) (Resolved) Coagulopathy (Acute) #1 acute kidney injury secondary to dehydration-patient will be admitted to PCU, he will be seen in consultation by nephrology, IV D5 with bicarbonate will be run at 75 mL's per hour, labs will be monitored #2 acute metabolic encephalopathy-secondary to acute kidney injury, patient will be placed on a full liquid diet for now, he has been lethargic in the emergency room and has been having dry heaves, he probably would not tolerate a regular diet. #3 metabolic acidosis secondary to acute kidney injury #4 hyperkalemia-nephrology has asked me to administer Kayexalate, it is unknown whether the patient will be able to take this due to his dry heaves in the emergency room. Labs will be rechecked in the morning #5 coagulopathy secondary to Coumadin usage with a backdrop of chronic amiodarone use-patient was given vitamin K 10 mg IV in the emergency room, INR will be checked daily, patient has no evidence of bleeding at this time #6 leukocytosis-etiology unclear, possibly secondary to dehydration, recheck CBC in the a.m., obtain a urinalysis if possible #7 ischemic cardiomyopathy-patient's Plavix will be held because his INR is elevated, he will remain on his other cardiac medications including beta-rambo and amiodarone. Dr. Clarke told me that his EF is 20%. #8 coronary artery disease #9 status post aortic aneurysm stenting approximately 3 months ago according to , I did not get the actual date of the stenting from Dr. Clarke #10 mild elevation of troponin-etiology unclear, I do not feel the patient needs cardiac enzymes cycled #11 underlying atrial fibrillation-chronic Code Visit Inpatient E&M: 91911 Init Hosp L3
[2018-02-16] MEDS: Metoprolol Tartrate 25 MG Tablet PO (21:30)
[2018-02-16] MEDS: Atorvastatin Calcium 40 MG Tablet PO (21:30)
[2018-02-16] MEDS: Phytonadione (Vit K) 10 MG/ML Ampul PO (21:35)
[2018-02-17] VITALS (22 sets, daily range): BP systolic 92–108; BP diastolic 64–72; PULSE 68–80; RESP 18–20; TEMP 36.4–36.9; O2SAT 93–100
[2018-02-17 00:42] LABS: Anion Gap 13 (5-15); BUN 82 mg/dL (7-18); Calcium,Total 7.9 mg/dL (8.5-10.1); Chloride 106 mmol/L (98-107); Creatinine, Serum 2.83 mg/dL (0.70-1.30); EST Glomerular Filtration Rate 23 mL/min (>60); Est Glom Filt Rate - Afr Amer 28 mL/min (>60); Estimated Creatinine Clearance 21.06 ml/min; Glucose 102 mg/dL (74-106); Potassium 5.4 mmol/L (3.5-5.1); Sodium Level 136 mmol/L (136-145)
[2018-02-17] MEDS: Sodium Polystyrene Sulfonate 15 GM/60 ML UDC 30 GM PO (00:43)
[2018-02-17] MEDS: Levothyroxine 175 MCG Tablet PO (06:23)
--- NOTE | 2018-02-17 07:43 | PN_ITS ---
Patient Problems: Active and Suspected Problems Generalized weakness (Acute) Decreased oral intake (Acute) Subjective: Overall, patient feels better than yesterday. He does not remember his history accurately but said he had a stent probably more than 2-3 years years ago as he denies recent OH. He feels that he has decreased frequency and amount of urine for last 6 months although does not follow any beta tester. Patient is mild short of breath but denies chest pain/pressure or fever. Blood pressure is running on the lower side On D5 bicarb drip at 75 mill per hour. INR is better. Needs strict monitoring of urine output. Deras catheter. Nephro consult. Urine electrolytes, osmolality ordered Vitals/I&O's: Vital Signs Temp Pulse Resp BP Pulse Ox 97.5 F L 71 18 95/72 100 02/17/18 06:15 02/17/18 07:20 02/17/18 06:15 02/17/18 06:15 02/17/18 07:05 Oxygen Flow Rate (L/min) 2.5 Oxygen Delivery Method Nasal Cannula Weight: 150 lb 2.157 oz Body Mass Index (BMI) 22.8 Intake and Output for Last 24 Hours 02/15/18 02/16/18 02/17/18 23:59 23:59 23:59 Intake Total 167 / 167 129 / 129 Output Total 100 / 100 Balance 167 / 167 General: Oriented x3, Cooperative, Lethargic, - - Patient is awake HEENT: Atraumatic, PERRLA, EOMI, Normocephalic Oral: Dry Mucosa Neck: Supple, No JVD, Negative Carotid Bruits Lungs: No wheeze, Diminished - Air entry is diminished in bilateral lung bases., Rales - Chronic inspiratory coarse rales present Cardiovascular: Regular rate, Regular Rhythm, Normal S1, Normal S2, No murmurs, - - AICD present signal circuit designer showed intermittent paced rhythm Abdomen: Bowel Sounds Present, Soft, Non Tender, Non-Distended Extremities: No edema, Capillary Refill Less than 3 Seconds Skin: No rashes, No breakdown Musculoskeletal: No Tenderness to Palpation of Joints or Extremities, Arthritic Changes, Muscle Wasting Neurological: Cranial nerves II-XII grossly intact, Deep Tendon Reflexes 2+/4 and Symmetrical, Neuro grossly intact, Motor Exam 5/5 strength throughout Psych/Mental Status: Normal Affect, Appropriate Laboratory Results 02/16/18 16:46: WBC 14.7 H, RBC 3.95 L, Hgb 11.1 L, Hct 37.0 L, MCV 93.7, MCH 28.1, MCHC 30.0 L, RDW 17.2 H, RDW Differential 58.2 H, Plt Count 244, MPV 11.4, Immature Gran % (Auto) 0.200, Neut % (Auto) 89.0 H, Lymph % (Auto) 6.1 L, Platte % (Auto) 4.6, Eos % (Auto) 0.0, Baso % (Auto) 0.1, Absolute Neuts (auto) 13.1 H, Absolute Lymphs (auto) 0.89, Total Counted Not Reportable 02/16/18 16:46: Sodium 133 L, Potassium 6.1 H*, Chloride 104, Carbon Dioxide 12.0 L, Anion Gap 17 H, BUN 78 H, Creatinine 3.08 H, Estim Creat Clear Calc 20.09, Est GFR (MDRD) Af Amer 25 L, Est GFR (MDRD) Non-Af 21 L, BUN/Creatinine Ratio 25.3 H, Glucose 104, Calcium 8.5, Troponin I 0.066 H 02/16/18 16:46: PT 117.3 H, INR 16.0 H* 02/16/18 17:50: Specimen Type ART, Sample Site R Radial, pH 7.34 L, Bicarbonate Actual 8.0 L, POC Total CO2 8, Base Excess -18 L, O2 Saturation 99, ABG pCO2 14.6 L*, ABG pO2 130 H, Dm Test NA, O2 Delivery Device Nasal Can, Liter Flow 2.0, Blood Gas Notified Whom ED , Blood Gas Notified Time 3947 02/16/18 21:00: Blood Type O POSITIVE 02/16/18 23:59: Sodium 136, Potassium 5.4 H, Chloride 106, Carbon Dioxide 17.0 L , Anion Gap 13, BUN 82 H, Creatinine 2.83 H, Estim Creat Clear Calc 21.06, Est GFR (MDRD) Af Amer 28 L, Est GFR (MDRD) Non-Af 23 L, BUN/Creatinine Ratio 29.0 H , Glucose 102, Calcium 7.9 L Current Medications Amiodarone HCl (Cordarone) 200 mg PO DAILY SEMAJ Aspirin (Ecotrin) 81 mg PO DAILY@0800 [facility] Atorvastatin Calcium (Lipitor) 40 mg PO QHS [facility] Last Admin: 02/16/18 21:30 Dose: 40 mg Sodium Bicarbonate 150 meq/ (Dextrose) 1,150 mls @ 75 mls/hr IV .[id number] [facility] Last Admin: 02/16/18 21:38 Dose: 75 mls/hr Sodium Chloride () 250 mls @ 15 mls/hr IV .[id number] PRN PRN Reason: SALINE FLUSH Levothyroxine Sodium (Synthroid) 175 mcg PO DAILY@0600 [facility] Last Admin: 02/17/18 06:23 Dose: 175 mcg Metoprolol Tartrate (Lopressor (Beta Jayne)) 25 mg PO BID [facility] Last Admin: 02/16/18 21:30 Dose: 25 mg Paroxetine HCl (Paxil) 40 mg PO QHS [facility] Last Admin: 02/16/18 21:29 Dose: 40 mg Sodium Chloride () 5 - 30 ml IV UD PRN PRN Reason: SALINE FLUSH Medical Necessity - Tobacco Use Smoking Status: Former smoker Tobacco Use: Cigarettes Assessment/Plan All Active Problems Generalized weakness (Acute) Decreased oral intake (Acute) DIC (disseminated intravascular coagulation) (Resolved) Severe sepsis (Resolved) UTI (urinary tract infection) (Resolved) Coagulopathy (Acute) This 77-year-old gentleman with history of coronary artery status post stent, ischemic cardiomyopathy with EF 20% status post AICD, thoracic aortic aneurysm status post graft in [place] about 3 months ago was admitted for generalized weakness, decreased oral intake, oliguria, severe high anion gap metabolic acidosis, bicarb 12, AG 17, BUN 78, creatinine 3.08, hyperkalemia, K6.1 coagulopathy INR 16. ABG was done and shows pH 7.34/PCO2 14.6, PO2 3130 on 2 L of oxygen through nasal cannula. Chest x-ray shows cardiomegaly without evidence of active pulmonary edema. Patient was given 10 mg IV vitamin K in the ER, cocktail for hyperkalemia and started on bicarb drip and admitted in PCU for further care. #1 acute kidney injury secondary to dehydration/possible ATN due to cardiorenal disease/chronic heart failure status post AICD: Patient is being admitted on cardiac sonographer in PCU. On IV fluid D5 bicarb at 04/05/1949 M EQ at 100 mL/h. Repeat lab shows improvement in bicarb to 19, anion gap normal 12 and improvement in creatinine. Deras catheter ordered to monitor strict I and O's as the patient had mixed urine and stool at one time. This was discussed with the nursing staff. UA shows negative pyuria, RBC, S,'s epithelial cells, bacteria but proteinuria 30 and ketones 250. Urine osmolarity 664, that is electively on higher side. Urine random protein is 37.5. Urine sodium 49, creatinine 140, K 42 and chloride less than 10. #2 acute metabolic encephalopathy-secondary to acute kidney injury: Has much improved. Advance her diet to regular diet. #3 Acute severe high metabolic acidosis secondary with compensated respiratory alkalosis to acute kidney injury: Initial blood gas and labs as mentioned above showed compensated high anion gap metabolic acidosis. Repeat lab shows improvement as mentioned above. #4 Acute hyperkalemia: After IV fluid bicarb drip, hyperkalemia cocktail; hyperkalemia resolved. Repeat potassium is 4.4. #5 coagulopathy secondary to Coumadin usage with a backdrop of chronic amiodarone use-patient was given vitamin K 10 mg IV in the emergency room. Patient was given fresh frozen plasma. Repeat INR is 3.7. #6 leukocytosis-etiology unclear, possibly secondary to dehydration: Repeat labs shows improvement in leukocytosis #7 ischemic cardiomyopathy chronic systolic heart failure with EF 20%: Repeat 2D echo is ordered.-patient's Plavix is held because his INR is elevated. continue cardiac medications including beta-jayne and amiodarone. As per Dr. Clarke his EF is 20%. #8 coronary artery disease status post stents #9 status post aortic aneurysm stenting approximately 3 months ago according to #10 mild elevation of troponin-etiology unclear, Mostly secondary to acute kidney injury. Patient denies chest pain or/pressure does not seem to acute coronary syndrome. #11 underlying atrial fibrillation-chronic status post activity spiked rhythm. Laboratory Results 02/16/18 16:46: WBC 14.7 H, RBC 3.95 L, Hgb 11.1 L, Hct 37.0 L, MCV 93.7, MCH 28.1, MCHC 30.0 L, RDW 17.2 H, RDW Differential 58.2 H, Plt Count 244, MPV 11.4, Immature Gran % (Auto) 0.200, Neut % (Auto) 89.0 H, Lymph % (Auto) 6.1 L, Platte % (Auto) 4.6, Eos % (Auto) 0.0, Baso % (Auto) 0.1, Absolute Neuts (auto) 13.1 H, Absolute Lymphs (auto) 0.89, Total Counted Not Reportable 02/16/18 16:46: Sodium 133 L, Potassium 6.1 H*, Chloride 104, Carbon Dioxide 12.0 L, Anion Gap 17 H, BUN 78 H, Creatinine 3.08 H, Estim Creat Clear Calc 20.09, Est GFR (MDRD) Af Amer 25 L, Est GFR (MDRD) Non-Af 21 L, BUN/Creatinine Ratio 25.3 H, Glucose 104, Calcium 8.5, Troponin I 0.066 H 02/16/18 16:46: PT 117.3 H, INR 16.0 H* 02/16/18 17:50: Specimen Type ART, Sample Site R Radial, pH 7.34 L, Bicarbonate Actual 8.0 L, POC Total CO2 8, Base Excess -18 L, O2 Saturation 99, ABG pCO2 14.6 L*, ABG pO2 130 H, Dm Test NA, O2 Delivery Device Nasal Can, Liter Flow 2.0, Blood Gas Notified Whom ED MD, Blood Gas Notified Time 5391 02/16/18 21:00: Blood Type O POSITIVE 02/16/18 23:59: Sodium 136, Potassium 5.4 H, Chloride 106, Carbon Dioxide 17.0 L , Anion Gap 13, BUN 82 H, Creatinine 2.83 H, Estim Creat Clear Calc 21.06, Est GFR (MDRD) Af Amer 28 L, Est GFR (MDRD) Non-Af 23 L, BUN/Creatinine Ratio 29.0 H , Glucose 102, Calcium 7.9 L Clinical Impression(s) from Imaging Studies Chest X-Ray 02/16/18 17:08 IMPRESSION: There is moderate enlargement of the cardiac silhouette with vascular congestion. There is no obvious effusion. There is bibasilar atelectasis. Chest X-Ray 02/17/18 07:52 IMPRESSION: Stable cardiomegaly. Mild pulmonary vascular congestion. Code Visit Inpatient E&M: 13812 Subs Hosp L3
--- NOTE | 2018-02-17 07:52 | RAD_ITS ---
STUDY: X-RAY CHEST REASON FOR EXAM: Male, 77 years old. Shortness of breath TECHNIQUE: Frontal view of the chest COMPARISON: 02/16/2018 FINDINGS: There are mild congestive changes noted. The lungs are otherwise clear. There are no pleural effusions. There is no pneumothorax. The heart is enlarged, but stable. Again noted are sternotomy wires and pacemaker. The visualized osseous structures are within normal limits. RAD/Chest 1 View (Portable) IMPRESSION: Stable cardiomegaly. Mild pulmonary vascular congestion. Electronically Signed: Lenny Granados, at 8:38 EST Tel , Service support ,
[2018-02-17 07:55] LABS: Absolute Lymphocyte Count 0.72 X10^3/ul (0.83-4.51); Absolute Neutrophil Count 10.8 X10^3/uL (2.0-7.7); Hematocrit 27.8 % (40-54); Hemoglobin 8.7 g/dl (13.0-16.5); Lymphocyte # 0.72 X10^3/ul (4.0); Mean Corp Hgb Conc 31.3 g/gl (32-36); Mean Corpuscular Hgb 28.5 pg (27.0-32.0); Mean Corpuscular Volume 91.1 fL (80-94); Mean Platelet Vol. 10.9 fl (6.2-12.0); Monocyte# 0.58 X10^3/uL; Monocyte% 4.8 % (0-10); Neutrophil # 10.78 X10^3/uL (2.7-7.7); Platelet Count 147 K/mm3 (150-450); RBC Distribution Width SD 55.6 fl (35.1-43.9); Red Blood Count 3.05 M/mm3 (4.6-6.2); White Blood Count 12.1 K/mm3 (4.4-11.0)
[2018-02-17 07:58] LABS: POSITIVE COUNT NO; POSITIVE DIFFERENTIAL NO; POSITIVE MORPHOLOGY NO
[2018-02-17 08:03] LABS: International Normalized Ratio 3.7; Prothrombin Time (Protime)PT. 37.3 SECONDS (11.7-14.9)
--- NOTE | 2018-02-17 08:32 | ECHOD_ITS ---
Reason For Study: SOB Procedure This was a 2D Doppler, Color Flow transthoracic echocardiogram. Exam performed portable in patient room. Left Ventricle Severely dilated left ventricle. The estimated ejection fraction is 15 %. Stage 3 diastolic dysfunction. There is severe global hypokinesis of the left ventricle. Right Ventricle Normal RV size. ICD or pacer leads identified within the right ventricle. Normal systolic function. Atria The left atrium is moderately enlarged. The right atrium is moderately enlarged. Mitral Valve Mild (1+) eccentric mitral valve insufficiency. Tricuspid Valve Normal tricuspid valve. Mild to moderate (1-2+) tricuspid valve insufficiency. Pulmonary artery systolic pressure is 40 mmHg. Aortic Valve Trisinus/trileaflet aortic valve. Pulmonic Valve Normal pulmonic valve. Great Vessels Mildly dilated aortic root. The pulmonary artery is normal size. Inferior vena cava collapse with respiration. Pericardium/Pleural No pericardial effusion. MMode/2D Measurements & Calculations LVIDd: 6.4 cm IVSd: 0.77 cm Ao root diam: 3.8 cm LVIDs: 5.8 cm LVPWd: 1.2 cm LA dimension: 4.6 cm RVDd: 4.4 cm FS: 9.7 % LAV(MOD-bp): 83.9 ml LVAd ap4: 51.7 cm2 SV(MOD-sp4): 16.2 ml LAV(MOD-bp) Indexed: 46.4 ml/m2 EDV(MOD-sp4): 218.5 ml LAV(MOD-sp2): 83.8 ml EDV(sp4-el): 235.2 ml LAV(MOD-sp4): 76.1 ml LVAs ap4: 47.7 cm2 ESV(MOD-sp4): 202.4 ml ESV(sp4-el): 211.2 ml EF(MOD-sp4): 7.4 % EF(sp4-el): 10.2 % SV(sp4-el): 24.0 ml LA A4 area: 24.4 cm2 RA A4 area: 27.7 cm2 Time Measurements MV dec time: 0.15 sec Doppler Measurements & Calculations MV E max pino: 90.6 cm/sec Lat Peak E' Pino: 6.0 cm/sec Med Peak E' Pino: 5.0 cm/sec MV A max pino: 17.7 cm/sec E/E' lat: 15.1 E/E' med: 18.2 MV E/A: 5.1 Ao V2 max: 107.8 cm/sec LV V1 max: 85.7 cm/sec MR max pino: 411.2 cm/sec Ao max P.7 mmHg LV V1 max P.9 mmHg MR max P.6 mmHg Ao V2 mean: 68.3 cm/sec LV V1 mean P.4 mmHg MR mean pino: 308.8 cm/sec Ao mean P.1 mmHg LV V1 mean: 52.7 cm/sec MR mean P.6 mmHg Ao V2 VTI: 16.4 cm LV V1 VTI: 13.9 cm MR VTI: 142.7 cm PA V2 max: 49.1 cm/sec TR max pino: 288.1 cm/sec TR max P.2 mmHg Interpretation Summary The estimated ejection fraction is 15 %. Stage 3 diastolic dysfunction. Severely dilated left ventricle. There is severe global hypokinesis of the left ventricle. Pulmonary artery systolic pressure is 40 mmHg. Ordering Physician: Rohan Queen Referring Physician: Ignacio Gilliam Performed By: Pedro Estes RCS
[2018-02-17 08:34] LABS: Anion Gap 12 (5-15); BUN 81 mg/dL (7-18); BUN/Creat Ratio 30.7 RATIO (10-20); Calcium,Total 7.7 mg/dL (8.5-10.1); Chloride 106 mmol/L (98-107); Creatinine, Serum 2.64 mg/dL (0.70-1.30); EST Glomerular Filtration Rate 25 mL/min (>60); Est Glom Filt Rate - Afr Amer 30 mL/min (>60); Estimated Creatinine Clearance 22.57 ml/min; Glucose 103 mg/dL (74-106); Potassium 4.4 mmol/L (3.5-5.1); Sodium Level 137 mmol/L (136-145)
[2018-02-17 08:46] LABS: Albumin, Serum 2.7 g/dL (3.2-5.0); Phosphorus 3.9 mg/dL (2.5-4.9)
[2018-02-17] MEDS: Aspirin E.C. 81 MG Tablet PO (09:16)
[2018-02-17] MEDS: Amiodarone 200 MG Tablet PO (09:16)
[2018-02-17] MEDS: Metoprolol Tartrate 25 MG Tablet PO ×2 (09:16→21:38)
[2018-02-17 09:34] LABS: Bacteria 0 SEEN /hpf (None Seen); Mucous, Urine 0 SEEN /hpf (<or=2+); Red Blood Cells-Urine 0 SEEN /hpf (0-5); Squamous Epithelial Cells - UA 0 SEEN /hpf (0-5); White Blood Cells 0 SEEN /hpf (0-5)
[2018-02-17 09:39] LABS: Color, Urine Yellow (Yellow); Glucose, Dipstick Normal (Normal); Ketone-Dipstick Negative (Negative); Leukocyte Esterase-Dipstick Negative /ul (Negative); Nitrite-Dipstick Negative (Negative); Occult Blood-Urine 250 /ul (Negative); Protein-Dipstick 30 mg/dl (Negative); Urine Bilirubin Dipstick Negative (Negative); Urine Clarity Sl. Cloudy (Clear); Urine Urobilinogen 1 mg/dl (Normal)
[2018-02-17 09:51] LABS: Protein, Urine (Random) 37.5 mg/dL (<11.9)
[2018-02-17 09:53] LABS: Urine Chloride < 10 mmol/L (Not Establ.); Urine Sodium 49 mmol/L (Not Establ.)
[2018-02-17 09:54] LABS: Osmolality, Urine 664 mOsm/KG
--- NOTE | 2018-02-17 15:43 | PCM.CONS.R ---
Problem List (1) Acute kidney failure Status: Acute (2) Hyperkalemia Status: Acute (3) Metabolic acidosis Status: Acute Consultation - Renal PCP/ Referring MD: Requesting physician: [] Primary care physician: Ignacio Gilliam - History of Present Illness History of Present Illness: The patient is a 77 year old M past medical history of CVA, coronary artery disease, CHF with ejection fraction 20%, chronic kidney disease stage III baseline creatinine 1.3. Patient presented for generalized weakness and decreased oral intake. This has been happening for a while but got worse for the last few days. Patient was found in the ER to have acute kidney injury and chronic kidney disease. Presentation creatinine was 3.08 mg/dL along with acidosis with bicarb 12 and hyperkalemia with potassium 6. Patient was on Aldactone at home which was stopped. Patient was started with sodium bicarb drip at 100 cc/h. Hyperkalemia was treated medically with the D50 and insulin. Creatinine is better today. Creatinine down to 2.6 mg/dL. Acidosis better. Potassium is been at 4.4. She is making urine. Review of system: 12 system review is negative except for generalized weakness and dizziness] - Allergies Allergies: Allergies No Known Allergies Allergy (Verified 02/16/18 16:35) - Current Medications Current Medications: Current Medications Amiodarone HCl (Cordarone) 200 mg PO DAILY [facility] Last Admin: 02/17/18 09:16 Dose: 200 mg Aspirin (Ecotrin) 81 mg PO DAILY@0800 [facility] Last Admin: 02/17/18 09:16 Dose: 81 mg Atorvastatin Calcium (Lipitor) 40 mg PO QHS [facility] Last Admin: 02/16/18 21:30 Dose: 40 mg Sodium Chloride () 250 mls @ 15 mls/hr IV .[id number] PRN PRN Reason: SALINE FLUSH Sodium Bicarbonate 150 meq/ (Dextrose) 1,150 mls @ 100 mls/hr IV .[id number] [facility] Last Admin: 02/17/18 14:11 Dose: 100 mls/hr Levothyroxine Sodium (Synthroid) 175 mcg PO DAILY@0600 [facility] Last Admin: 02/17/18 06:23 Dose: 175 mcg Metoprolol Tartrate (Lopressor (Beta Jayne)) 25 mg PO BID [facility] Last Admin: 02/17/18 09:16 Dose: 25 mg Nutritional Formula (Lactose Free) (Ensure Enlive) 120 ml PO 4X/DAY [facility] Last Admin: 02/17/18 14:11 Dose: 120 ml Paroxetine HCl (Paxil) 40 mg PO QHS [facility] Last Admin: 02/16/18 21:29 Dose: 40 mg Sodium Chloride () 5 - 30 ml IV UD PRN PRN Reason: SALINE FLUSH - Past Medical History Past Medical History (Chronic Problems): Chronic Problems Anxiety and depression (Chronic) CAD (coronary artery disease) (Chronic) ICD (implantable cardioverter-defibrillator) in place (Chronic) CVA (cerebral infarction) (Chronic) Hyperlipidemia (Chronic) Hypothyroidism (Chronic) Systolic heart failure (Chronic) Chronic atrial fibrillation (Chronic) S/P CABG x 3 (Chronic) Pacemaker (Chronic) - Past Surgical History Surgical History: - - CABG x 3, PCI, T+A, Pacemaker/ICD, aortic aneurysm stenting 2017 (?October) - Social History Smoking Status: Former smoker Alcohol: None Drugs: None - Family History Maternal History Items: Heart Disease, Stroke Paternal History Items: Heart Disease Patient Problems: Active and Suspected Problems Acute kidney failure (Acute) Hyperkalemia (Acute) Metabolic acidosis (Acute) Generalized weakness (Acute) Decreased oral intake (Acute) - Physical Exam General: Alert, Oriented x3 HEENT: Atraumatic Oral: Moist Mucosa Neck: Supple, No JVD Lungs: Clear to auscultation, Normal air movement Cardiovascular: Regular rate, Regular Rhythm, Normal S1, Normal S2 Abdomen: Bowel Sounds Present, Soft, Non Tender, Non-Distended Extremities: No clubbing, No cyanosis, No edema Musculoskeletal: No Tenderness to Palpation of Joints or Extremities Lymphatic: No Cervical, Supraclavicular, or Inguinal Adenopathy Neurological: Cranial nerves II-XII grossly intact Psych/Mental Status: Normal Affect Vital Signs Temp Pulse Resp BP Pulse Ox 98 F 70 18 108/72 98 02/17/18 10:28 02/17/18 15:34 02/17/18 10:28 02/17/18 10:28 02/17/18 10:28 Oxygen Flow Rate (L/min) 2.5 Oxygen Delivery Method Room Air Weight: 68.1 kg Body Mass Index (BMI) 22.8 Intake and Output for Last 24 Hours 02/15/18 02/16/18 02/17/18 23:59 23:59 23:59 Intake Total 167 / 167 1015 / 1015 Output Total 200 / 200 Balance 167 / 167 815 / 815 Laboratory Tests Past 24 Hrs 02/16/18 02/16/18 02/16/18 16:46 16:46 16:46 WBC 14.7 H RBC 3.95 L Hgb 11.1 L Hct 37.0 L MCV 93.7 MCH 28.1 MCHC 30.0 L RDW 17.2 H RDW Differential 58.2 H Plt Count 244 MPV 11.4 Immature Gran % (Auto) 0.200 Neut % (Auto) 89.0 H Lymph % (Auto) 6.1 L Woods % (Auto) 4.6 Eos % (Auto) 0.0 Baso % (Auto) 0.1 Absolute Neuts (auto) 13.1 H Absolute Lymphs (auto) 0.89 Total Counted Not Reportable PT 117.3 H INR 16.0 H* Specimen Type Sample Site pH Bicarbonate Actual POC Total CO2 Base Excess O2 Saturation ABG pCO2 ABG pO2 Dm Test O2 Delivery Device Liter Flow Blood Gas Notified Whom Blood Gas Notified Time Sodium 133 L Potassium 6.1 H* Chloride 104 Carbon Dioxide 12.0 L Anion Gap 17 H BUN 78 H Creatinine 3.08 H Estim Creat Clear Calc 20.09 Est GFR (MDRD) Af Amer 25 L Est GFR (MDRD) Non-Af 21 L BUN/Creatinine Ratio 25.3 H Glucose 104 Calcium 8.5 Phosphorus Troponin I 0.066 H Albumin Urine Color Urine Clarity Urine pH Ur Specific [place] Urine Protein Urine Glucose (UA) Urine Ketones Urine Occult Blood Urine Nitrite Urine Bilirubin Urine Urobilinogen Ur Leukocyte Esterase Urine RBC Urine WBC Ur Squamous Epith Cells Urine Bacteria Urine Mucus Urine Osmolality U Random Total Protein Ur Random Sodium Urine Creatinine Urine Potassium Urine Chloride Blood Type 02/16/18 02/16/18 02/16/18 17:50 21:00 23:59 WBC RBC Hgb Hct MCV MCH MCHC RDW RDW Differential Plt Count MPV Immature Gran % (Auto) Neut % (Auto) Lymph % (Auto) Woods % (Auto) Eos % (Auto) Baso % (Auto) Absolute Neuts (auto) Absolute Lymphs (auto) Total Counted PT INR Specimen Type ART Sample Site R Radial pH 7.34 L Bicarbonate Actual 8.0 L POC Total CO2 8 Base Excess -18 L O2 Saturation 99 ABG pCO2 14.6 L* ABG pO2 130 H Dm Test NA O2 Delivery Device Nasal Can Liter Flow 2.0 Blood Gas Notified Whom ED MD Blood Gas Notified Time 1744 Sodium 136 Potassium 5.4 H Chloride 106 Carbon Dioxide 17.0 L Anion Gap 13 BUN 82 H Creatinine 2.83 H Estim Creat Clear Calc 21.06 Est GFR (MDRD) Af Amer 28 L Est GFR (MDRD) Non-Af 23 L BUN/Creatinine Ratio 29.0 H Glucose 102 Calcium 7.9 L Phosphorus Troponin I Albumin Urine Color Urine Clarity Urine pH Ur Specific [place] Urine Protein Urine Glucose (UA) Urine Ketones Urine Occult Blood Urine Nitrite Urine Bilirubin Urine Urobilinogen Ur Leukocyte Esterase Urine RBC Urine WBC Ur Squamous Epith Cells Urine Bacteria Urine Mucus Urine Osmolality U Random Total Protein Ur Random Sodium Urine Creatinine Urine Potassium Urine Chloride Blood Type O POSITIVE 02/17/18 02/17/18 02/17/18 07:20 07:20 07:20 WBC 12.1 H RBC 3.05 L Hgb 8.7 L Hct 27.8 L MCV 91.1 MCH 28.5 MCHC 31.3 L RDW 17.0 H RDW Differential 55.6 H Plt Count 147 L MPV 10.9 Immature Gran % (Auto) 0.200 Neut % (Auto) 89.0 H Lymph % (Auto) 6.0 L Woods % (Auto) 4.8 Eos % (Auto) 0.0 Baso % (Auto) 0.0 Absolute Neuts (auto) 10.8 H Absolute Lymphs (auto) 0.72 L Total Counted Not Reportable PT 37.3 H INR 3.7 H* Specimen Type Sample Site pH Bicarbonate Actual POC Total CO2 Base Excess O2 Saturation ABG pCO2 ABG pO2 Dm Test O2 Delivery Device Liter Flow Blood Gas Notified Whom Blood Gas Notified Time Sodium 137 Potassium 4.4 Chloride 106 Carbon Dioxide 19.0 L Anion Gap 12 BUN 81 H Creatinine 2.64 H Estim Creat Clear Calc 22.57 Est GFR (MDRD) Af Amer 30 L Est GFR (MDRD) Non-Af 25 L BUN/Creatinine Ratio 30.7 H Glucose 103 Calcium 7.7 L Phosphorus Troponin I Albumin Urine Color Urine Clarity Urine pH Ur Specific [place] Urine Protein Urine Glucose (UA) Urine Ketones Urine Occult Blood Urine Nitrite Urine Bilirubin Urine Urobilinogen Ur Leukocyte Esterase Urine RBC Urine WBC Ur Squamous Epith Cells Urine Bacteria Urine Mucus Urine Osmolality U Random Total Protein Ur Random Sodium Urine Creatinine Urine Potassium Urine Chloride Blood Type 02/17/18 02/17/18 02/17/18 07:20 09:20 09:20 WBC RBC Hgb Hct MCV MCH MCHC RDW RDW Differential Plt Count MPV Immature Gran % (Auto) Neut % (Auto) Lymph % (Auto) Woods % (Auto) Eos % (Auto) Baso % (Auto) Absolute Neuts (auto) Absolute Lymphs (auto) Total Counted PT INR Specimen Type Sample Site pH Bicarbonate Actual POC Total CO2 Base Excess O2 Saturation ABG pCO2 ABG pO2 Dm Test O2 Delivery Device Liter Flow Blood Gas Notified Whom Blood Gas Notified Time Sodium Cancelled Potassium Cancelled Chloride Cancelled Carbon Dioxide Cancelled Anion Gap BUN Cancelled Creatinine Cancelled Estim Creat Clear Calc Est GFR (MDRD) Af Amer Cancelled Est GFR (MDRD) Non-Af Cancelled BUN/Creatinine Ratio Cancelled Glucose Cancelled Calcium Cancelled Phosphorus 3.9 Troponin I Albumin 2.7 L Urine Color Yellow Urine Clarity Sl. Cloudy Urine pH 5.0 Ur Specific [place] 1.020 Urine Protein 30 H Urine Glucose (UA) Normal Urine Ketones Negative Urine Occult Blood 250 H Urine Nitrite Negative Urine Bilirubin Negative Urine Urobilinogen 1 H Ur Leukocyte Esterase Negative Urine RBC 0 SEEN Urine WBC 0 SEEN Ur Squamous Epith Cells 0 SEEN Urine Bacteria 0 SEEN Urine Mucus 0 SEEN Urine Osmolality U Random Total Protein 37.5 H Ur Random Sodium Urine Creatinine Urine Potassium Urine Chloride Blood Type 02/17/18 02/17/18 02/17/18 09:20 09:20 09:20 WBC RBC Hgb Hct MCV MCH MCHC RDW RDW Differential Plt Count MPV Immature Gran % (Auto) Neut % (Auto) Lymph % (Auto) Woods % (Auto) Eos % (Auto) Baso % (Auto) Absolute Neuts (auto) Absolute Lymphs (auto) Total Counted PT INR Specimen Type Sample Site pH Bicarbonate Actual POC Total CO2 Base Excess O2 Saturation ABG pCO2 ABG pO2 Dm Test O2 Delivery Device Liter Flow Blood Gas Notified Whom Blood Gas Notified Time Sodium Potassium Chloride Carbon Dioxide Anion Gap BUN Creatinine Estim Creat Clear Calc Est GFR (MDRD) Af Amer Est GFR (MDRD) Non-Af BUN/Creatinine Ratio Glucose Calcium Phosphorus Troponin I Albumin Urine Color Urine Clarity Urine pH Ur Specific [place] Urine Protein Urine Glucose (UA) Urine Ketones Urine Occult Blood Urine Nitrite Urine Bilirubin Urine Urobilinogen Ur Leukocyte Esterase Urine RBC Urine WBC Ur Squamous Epith Cells Urine Bacteria Urine Mucus Urine Osmolality 664 U Random Total Protein Ur Random Sodium 49 Urine Creatinine 140.00 Urine Potassium 42.0 Urine Chloride < 10 Blood Type Assessment/Plan All Active Problems Acute kidney failure (Acute) Hyperkalemia (Acute) Metabolic acidosis (Acute) Generalized weakness (Acute) Decreased oral intake (Acute) DIC (disseminated intravascular coagulation) (Resolved) Severe sepsis (Resolved) UTI (urinary tract infection) (Resolved) Coagulopathy (Acute) 1-kidney injury and chronic kidney disease. Baseline creatinine 1.3 UA is benign at presentation except for some protein 30 mg a deciliter and 250 blood Creatinine peaked at 3.0 mg/dL. Creatinine improving with IV fluid making prerenal from dehydration the most probable reason for acute kidney injury. I will continue IV fluid at the same rate. Please avoid any MAX inhibitor/ARB. No need for renal replacement therapy. Check serum creatinine tomorrow. 2-hyperkalemia: Most probably related to acute kidney injury and Aldactone. Improved. Patient was treated medically with D50 and insulin. Potassium today 4.4. Check potassium tomorrow. 3-metabolic acidosis. Most probably due to acute kidney injury. Bicarb is improving with IV sodium bicarb drip and kidney functions improvement Continue sodium bicarb drip for now. Thank you for the consult. Kidney team will continue to follow. Plan of care was discussed with Dr. Johnathon Toledo MD
--- NOTE | 2018-02-17 15:49 | CON.PCM_ITS ---
Problem List (1) Acute kidney failure Status: Acute (2) Hyperkalemia Status: Acute (3) Metabolic acidosis Status: Acute Consultation - Renal PCP/ Referring MD: Requesting physician: [] Primary care physician: Ignacio Gilliam - History of Present Illness History of Present Illness: The patient is a 77 year old M past medical history of CVA, coronary artery disease, CHF with ejection fraction 20%, chronic kidney disease stage III baseline creatinine 1.3. Patient presented for generalized weakness and de creased oral intake. This has been happening for a while but got worse for the last few days. Patient was found in the ER to have acute kidney injury and chronic kidney disease. Presentation creatinine was 3.08 mg/dL along with acidosis with bicarb 12 and hyperkalemia with potassium 6. Patient was on Aldactone at home which was stopped. Patient was started with sodium bicarb drip at 100 cc/h. Hyperkalemia was treated medically with the D50 and insulin. Creatinine is better today. Creatinine down to 2.6 mg/dL. Acidosis better. Potassium is been at 4.4. She is making urine. Review of system: 12 system review is negative except for generalized weakness and dizziness] - Allergies Allergies: Allergies No Known Allergies Allergy (Verified 02/16/18 16:35) - Current Medications Current Medications: Current Medications Amiodarone HCl (Cordarone) 200 mg PO DAILY [facility] Last Admin: 02/17/18 09:16 Dose: 200 mg Aspirin (Ecotrin) 81 mg PO DAILY@0800 [facility] Last Admin: 02/17/18 09:16 Dose: 81 mg Atorvastatin Calcium (Lipitor) 40 mg PO QHS [facility] Last Admin: 02/16/18 21:30 Dose: 40 mg Sodium Chloride () 250 mls @ 15 mls/hr IV .[id number] PRN PRN Reason: SALINE FLUSH Sodium Bicarbonate 150 meq/ (Dextrose) 1,150 mls @ 100 mls/hr IV .[id number] [facility] Last Admin: 02/17/18 14:11 Dose: 100 mls/hr Levothyroxine Sodium (Synthroid) 175 mcg PO DAILY@0600 [facility] Last Admin: 02/17/18 06:23 Dose: 175 mcg Metoprolol Tartrate (Lopressor (Beta Jayne)) 25 mg PO BID [facility] Last Admin: 02/17/18 09:16 Dose: 25 mg Nutritional Formula (Lactose Free) (Ensure Enlive) 120 ml PO 4X/DAY [facility] Last Admin: 02/17/18 14:11 Dose: 120 ml Paroxetine HCl (Paxil) 40 mg PO QHS [facility] Last Admin: 02/16/18 21:29 Dose: 40 mg Sodium Chloride () 5 - 30 ml IV UD PRN PRN Reason: SALINE FLUSH - Past Medical History Past Medical History (Chronic Problems): Chronic Problems Anxiety and depression (Chronic) CAD (coronary artery disease) (Chronic) ICD (implantable cardioverter-defibrillator) in place (Chronic) CVA (cerebral infarction) (Chronic) Hyperlipidemia (Chronic) Hypothyroidism (Chronic) Systolic heart failure (Chronic) Chronic atrial fibrillation (Chronic) S/P CABG x 3 (Chronic) Pacemaker (Chronic) - Past Surgical History Surgical History: - - CABG x 3, PCI, T+A, Pacemaker/ICD, aortic aneurysm stenting 2017 (?October) - Social History Smoking Status: Former smoker Alcohol: None Drugs: None - Family History Maternal History Items: Heart Disease, Stroke Paternal History Items: Heart Disease Patient Problems: Active and Suspected Problems Acute kidney failure (Acute) Hyperkalemia (Acute) Metabolic acidosis (Acute) Generalized weakness (Acute) Decreased oral intake (Acute) - Physical Exam General: Alert, Oriented x3 HEENT: Atraumatic Oral: Moist Mucosa Neck: Supple, No JVD Lungs: Clear to auscultation, Normal air movement Cardiovascular: Regular rate, Regular Rhythm, Normal S1, Normal S2 Abdomen: Bowel Sounds Present, Soft, Non Tender, Non-Distended Extremities: No clubbing, No cyanosis, No edema Musculoskeletal: No Tenderness to Palpation of Joints or Extremities Lymphatic: No Cervical, Supraclavicular, or Inguinal Adenopathy Neurological: Cranial nerves II-XII grossly intact Psych/Mental Status: Normal Affect Vital Signs Temp Pulse Resp BP Pulse Ox 98 F 70 18 108/72 98 02/17/18 10:28 02/17/18 15:34 02/17/18 10:28 02/17/18 10:28 02/17/18 10:28 Oxygen Flow Rate (L/min) 2.5 Oxygen Delivery Method Room Air Weight: 68.1 kg Body Mass Index (BMI) 22.8 Intake and Output for Last 24 Hours 02/15/18 02/16/18 02/17/18 23:59 23:59 23:59 Intake Total 167 / 167 1015 / 1015 Output Total 200 / 200 Balance 167 / 167 815 / 815 Laboratory Tests Past 24 Hrs 02/16/18 02/16/18 02/16/18 16:46 16:46 16:46 WBC 14.7 H RBC 3.95 L Hgb 11.1 L Hct 37.0 L MCV 93.7 MCH 28.1 MCHC 30.0 L RDW 17.2 H RDW Differential 58.2 H Plt Count 244 MPV 11.4 Immature Gran % (Auto) 0.200 Neut % (Auto) 89.0 H Lymph % (Auto) 6.1 L [place] % (Auto) 4.6 Eos % (Auto) 0.0 Baso % (Auto) 0.1 Absolute Neuts (auto) 13.1 H Absolute Lymphs (auto) 0.89 Total Counted Not Reportable PT 117.3 H INR 16.0 H* Specimen Type Sample Site pH Bicarbonate Actual POC Total CO2 Base Excess O2 Saturation ABG pCO2 ABG pO2 Dm Test O2 Delivery Device Liter Flow Blood Gas Notified Whom Blood Gas Notified Time Sodium 133 L Potassium 6.1 H* Chloride 104 Carbon Dioxide 12.0 L Anion Gap 17 H BUN 78 H Creatinine 3.08 H Estim Creat Clear Calc 20.09 Est GFR (MDRD) Af Amer 25 L Est GFR (MDRD) Non-Af 21 L BUN/Creatinine Ratio 25.3 H Glucose 104 Calcium 8.5 Phosphorus Troponin I 0.066 H Albumin Urine Color Urine Clarity Urine pH Ur Specific [place] Urine Protein Urine Glucose (UA) Urine Ketones Urine Occult Blood Urine Nitrite Urine Bilirubin Urine Urobilinogen Ur Leukocyte Esterase Urine RBC Urine WBC Ur Squamous Epith Cells Urine Bacteria Urine Mucus Urine Osmolality U Random Total Protein Ur Random Sodium Urine Creatinine Urine Potassium Urine Chloride Blood Type 02/16/18 02/16/18 02/16/18 17:50 21:00 23:59 WBC RBC Hgb Hct MCV MCH MCHC RDW RDW Differential Plt Count MPV Immature Gran % (Auto) Neut % (Auto) Lymph % (Auto) [place] % (Auto) Eos % (Auto) Baso % (Auto) Absolute Neuts (auto) Absolute Lymphs (auto) Total Counted PT INR Specimen Type ART Sample Site R Radial pH 7.34 L Bicarbonate Actual 8.0 L POC Total CO2 8 Base Excess -18 L O2 Saturation 99 ABG pCO2 14.6 L* ABG pO2 130 H Dm Test NA O2 Delivery Device Nasal Can Liter Flow 2.0 Blood Gas Notified Whom ED Blood Gas Notified Time 1744 Sodium 136 Potassium 5.4 H Chloride 106 Carbon Dioxide 17.0 L Anion Gap 13 BUN 82 H Creatinine 2.83 H Estim Creat Clear Calc 21.06 Est GFR (MDRD) Af Amer 28 L Est GFR (MDRD) Non-Af 23 L BUN/Creatinine Ratio 29.0 H Glucose 102 Calcium 7.9 L Phosphorus Troponin I Albumin Urine Color Urine Clarity Urine pH Ur Specific [place] Urine Protein Urine Glucose (UA) Urine Ketones Urine Occult Blood Urine Nitrite Urine Bilirubin Urine Urobilinogen Ur Leukocyte Esterase Urine RBC Urine WBC Ur Squamous Epith Cells Urine Bacteria Urine Mucus Urine Osmolality U Random Total Protein Ur Random Sodium Urine Creatinine Urine Potassium Urine Chloride Blood Type O POSITIVE 02/17/18 02/17/18 02/17/18 07:20 07:20 07:20 WBC 12.1 H RBC 3.05 L Hgb 8.7 L Hct 27.8 L MCV 91.1 MCH 28.5 MCHC 31.3 L RDW 17.0 H RDW Differential 55.6 H Plt Count 147 L MPV 10.9 Immature Gran % (Auto) 0.200 Neut % (Auto) 89.0 H Lymph % (Auto) 6.0 L [place] % (Auto) 4.8 Eos % (Auto) 0.0 Baso % (Auto) 0.0 Absolute Neuts (auto) 10.8 H Absolute Lymphs (auto) 0.72 L Total Counted Not Reportable PT 37.3 H INR 3.7 H* Specimen Type Sample Site pH Bicarbonate Actual POC Total CO2 Base Excess O2 Saturation ABG pCO2 ABG pO2 Dm Test O2 Delivery Device Liter Flow Blood Gas Notified Whom Blood Gas Notified Time Sodium 137 Potassium 4.4 Chloride 106 Carbon Dioxide 19.0 L Anion Gap 12 BUN 81 H Creatinine 2.64 H Estim Creat Clear Calc 22.57 Est GFR (MDRD) Af Amer 30 L Est GFR (MDRD) Non-Af 25 L BUN/Creatinine Ratio 30.7 H Glucose 103 Calcium 7.7 L Phosphorus Troponin I Albumin Urine Color Urine Clarity Urine pH Ur Specific [place] Urine Protein Urine Glucose (UA) Urine Ketones Urine Occult Blood Urine Nitrite Urine Bilirubin Urine Urobilinogen Ur Leukocyte Esterase Urine RBC Urine WBC Ur Squamous Epith Cells Urine Bacteria Urine Mucus Urine Osmolality U Random Total Protein Ur Random Sodium Urine Creatinine Urine Potassium Urine Chloride Blood Type 02/17/18 02/17/18 02/17/18 07:20 09:20 09:20 WBC RBC Hgb Hct MCV MCH MCHC RDW RDW Differential Plt Count MPV Immature Gran % (Auto) Neut % (Auto) Lymph % (Auto) [place] % (Auto) Eos % (Auto) Baso % (Auto) Absolute Neuts (auto) Absolute Lymphs (auto) Total Counted PT INR Specimen Type Sample Site pH Bicarbonate Actual POC Total CO2 Base Excess O2 Saturation ABG pCO2 ABG pO2 Dm Test O2 Delivery Device Liter Flow Blood Gas Notified Whom Blood Gas Notified Time Sodium Cancelled Potassium Cancelled Chloride Cancelled Carbon Dioxide Cancelled Anion Gap BUN Cancelled Creatinine Cancelled Estim Creat Clear Calc Est GFR (MDRD) Af Amer Cancelled Est GFR (MDRD) Non-Af Cancelled BUN/Creatinine Ratio Cancelled Glucose Cancelled Calcium Cancelled Phosphorus 3.9 Troponin I Albumin 2.7 L Urine Color Yellow Urine Clarity Sl. Cloudy Urine pH 5.0 Ur Specific [place] 1.020 Urine Protein 30 H Urine Glucose (UA) Normal Urine Ketones Negative Urine Occult Blood 250 H Urine Nitrite Negative Urine Bilirubin Negative Urine Urobilinogen 1 H Ur Leukocyte Esterase Negative Urine RBC 0 SEEN Urine WBC 0 SEEN Ur Squamous Epith Cells 0 SEEN Urine Bacteria 0 SEEN Urine Mucus 0 SEEN Urine Osmolality U Random Total Protein 37.5 H Ur Random Sodium Urine Creatinine Urine Potassium Urine Chloride Blood Type 02/17/18 02/17/18 02/17/18 09:20 09:20 09:20 WBC RBC Hgb Hct MCV MCH MCHC RDW RDW Differential Plt Count MPV Immature Gran % (Auto) Neut % (Auto) Lymph % (Auto) [place] % (Auto) Eos % (Auto) Baso % (Auto) Absolute Neuts (auto) Absolute Lymphs (auto) Total Counted PT INR Specimen Type Sample Site pH Bicarbonate Actual POC Total CO2 Base Excess O2 Saturation ABG pCO2 ABG pO2 Dm Test O2 Delivery Device Liter Flow Blood Gas Notified Whom Blood Gas Notified Time Sodium Potassium Chloride Carbon Dioxide Anion Gap BUN Creatinine Estim Creat Clear Calc Est GFR (MDRD) Af Amer Est GFR (MDRD) Non-Af BUN/Creatinine Ratio Glucose Calcium Phosphorus Troponin I Albumin Urine Color Urine Clarity Urine pH Ur Specific [place] Urine Protein Urine Glucose (UA) Urine Ketones Urine Occult Blood Urine Nitrite Urine Bilirubin Urine Urobilinogen Ur Leukocyte Esterase Urine RBC Urine WBC Ur Squamous Epith Cells Urine Bacteria Urine Mucus Urine Osmolality 664 U Random Total Protein Ur Random Sodium 49 Urine Creatinine 140.00 Urine Potassium 42.0 Urine Chloride < 10 Blood Type Assessment/Plan All Active Problems Acute kidney failure (Acute) Hyperkalemia (Acute) Metabolic acidosis (Acute) Generalized weakness (Acute) Decreased oral intake (Acute) DIC (disseminated intravascular coagulation) (Resolved) Severe sepsis (Resolved) UTI (urinary tract infection) (Resolved) Coagulopathy (Acute) 1-kidney injury and chronic kidney disease. Baseline creatinine 1.3 UA is benign at presentation except for some protein 30 mg a deciliter and 250 blood Creatinine peaked at 3.0 mg/dL. Creatinine improving with IV fluid making prerenal from dehydration the most probable reason for acute kidney injury. I will continue IV fluid at the same rate. Please avoid any MAX inhibitor/ARB. No need for renal replacement therapy. Check serum creatinine tomorrow. 2-hyperkalemia: Most probably related to acute kidney injury and Aldactone. Improved. Patient was treated medically with D50 and insulin. Potassium today 4.4. Check potassium tomorrow. 3-metabolic acidosis. Most probably due to acute kidney injury. Bicarb is improving with IV sodium bicarb drip and kidney functions improvement Continue sodium bicarb drip for now. Thank you for the consult. Kidney team will continue to follow. Plan of care was discussed with Dr. Johnathon Toledo MD
[2018-02-17] MEDS: Atorvastatin Calcium 40 MG Tablet PO (21:37)
[2018-02-18] VITALS (16 sets, daily range): BP systolic 87–114; BP diastolic 57–65; PULSE 65–90; RESP 16–18; TEMP 36.3–36.9; O2SAT 93–98
[2018-02-18] MEDS: Levothyroxine 175 MCG Tablet PO (05:48)
[2018-02-18 05:54] LABS: Absolute Lymphocyte Count 0.76 X10^3/ul (0.83-4.51); Absolute Neutrophil Count 8.5 X10^3/uL (2.0-7.7); Eosinophil# 0.02 X10^3/uL; Eosinophils% 0.2 % (0-5); Hematocrit 27.5 % (40-54); Hemoglobin 8.6 g/dl (13.0-16.5); Lymphocyte # 0.76 X10^3/ul (4.0); Lymphocyte % 7.8 % (19-41); Mean Corp Hgb Conc 31.3 g/gl (32-36); Mean Corpuscular Hgb 28.6 pg (27.0-32.0); Mean Corpuscular Volume 91.4 fL (80-94); Mean Platelet Vol. 11.5 fl (6.2-12.0); Monocyte# 0.49 X10^3/uL; Neutrophil # 8.47 X10^3/uL (2.7-7.7); Neutrophil % 86.7 % (47-70); Platelet Count 148 K/mm3 (150-450); RBC Distribution Width CV 16.7 % (11.6-14.6); RBC Distribution Width SD 52.5 fl (35.1-43.9); Red Blood Count 3.01 M/mm3 (4.6-6.2); White Blood Count 9.8 K/mm3 (4.4-11.0)
[2018-02-18 05:58] LABS: International Normalized Ratio 2.9; POSITIVE COUNT NO; POSITIVE DIFFERENTIAL NO; POSITIVE MORPHOLOGY NO; Prothrombin Time (Protime)PT. 30.1 SECONDS (11.7-14.9)
[2018-02-18 06:10] LABS: Anion Gap 12 (5-15); BUN 79 mg/dL (7-18); BUN/Creat Ratio 34.3 RATIO (10-20); Calcium,Total 7.2 mg/dL (8.5-10.1); Chloride 103 mmol/L (98-107); EST Glomerular Filtration Rate 29 mL/min (>60); Est Glom Filt Rate - Afr Amer 36 mL/min (>60); Glucose 116 mg/dL (74-106); Potassium 3.7 mmol/L (3.5-5.1); Sodium Level 139 mmol/L (136-145)
--- NOTE | 2018-02-18 09:23 | PCM.PROGNOTE ---
<Valeri Thompson - Last Filed: 02/18/18 09:49> Patient Problems: Active and Suspected Problems Acute kidney failure (Acute) Hyperkalemia (Acute) Metabolic acidosis (Acute) Generalized weakness (Acute) Decreased oral intake (Acute) Subjective: Patient seen and examined. Echocardiogram completed. Patient complains of intermittent shortness of breath, patient states this has been ongoing. Denies other current complaints. - Physical Exam General: Alert, Oriented x3, Cooperative, No apparent distress HEENT: Atraumatic, PERRLA, EOMI, Normocephalic Oral: Moist Mucosa Neck: Supple, No JVD, Negative Carotid Bruits Lungs: Clear to auscultation, Normal air movement Cardiovascular: Regular rate, Regular Rhythm, Normal S1, Normal S2, No murmurs, - - Ventricular paced Abdomen: Bowel Sounds Present, Soft, Non Tender, Non-Distended Extremities: No clubbing, No cyanosis, Capillary Refill Less than 3 Seconds, Edema - +1 BLLE Skin: No rashes, No breakdown Musculoskeletal: No Tenderness to Palpation of Joints or Extremities Neurological: Cranial nerves II-XII grossly intact, Neuro grossly intact Psych/Mental Status: Normal Affect, Appropriate Vital Signs Temp Pulse Resp BP Pulse Ox 97.3 F L 76 18 105/63 95 02/18/18 08:45 02/18/18 08:45 02/18/18 08:45 02/18/18 08:45 02/18/18 08:45 Oxygen Flow Rate (L/min) 2.5 Oxygen Delivery Method Room Air Weight: 150 lb 2.157 oz Body Mass Index (BMI) 22.8 Intake and Output for Last 24 Hours 02/16/18 02/17/18 02/18/18 23:59 23:59 23:59 Intake Total 167 / 167 1795 / 1795 979 / 979 Output Total 500 / 500 400 / 400 Balance 167 / 167 1295 / 1295 579 / 579 Laboratory Tests Past 24 Hrs 02/17/18 02/17/18 02/17/18 09:20 09:20 09:20 WBC RBC Hgb Hct MCV MCH MCHC RDW RDW Differential Plt Count MPV Immature Gran % (Auto) Neut % (Auto) Lymph % (Auto) [place] % (Auto) Eos % (Auto) Baso % (Auto) Absolute Neuts (auto) Absolute Lymphs (auto) Total Counted PT INR Sodium Potassium Chloride Carbon Dioxide Anion Gap BUN Creatinine Estim Creat Clear Calc Est GFR (MDRD) Af Amer Est GFR (MDRD) Non-Af BUN/Creatinine Ratio Glucose Calcium Urine Color Yellow Urine Clarity Sl. Cloudy Urine pH 5.0 Ur Specific [place] 1.020 Urine Protein 30 H Urine Glucose (UA) Normal Urine Ketones Negative Urine Occult Blood 250 H Urine Nitrite Negative Urine Bilirubin Negative Urine Urobilinogen 1 H Ur Leukocyte Esterase Negative Urine RBC 0 SEEN Urine WBC 0 SEEN Ur Squamous Epith Cells 0 SEEN Urine Bacteria 0 SEEN Urine Mucus 0 SEEN Urine Osmolality 664 U Random Total Protein 37.5 H Ur Random Sodium Urine Creatinine Urine Potassium Urine Chloride 02/17/18 02/17/18 02/18/18 09:20 09:20 05:10 WBC RBC Hgb Hct MCV MCH MCHC RDW RDW Differential Plt Count MPV Immature Gran % (Auto) Neut % (Auto) Lymph % (Auto) [place] % (Auto) Eos % (Auto) Baso % (Auto) Absolute Neuts (auto) Absolute Lymphs (auto) Total Counted PT 30.1 H INR 2.9 Sodium Potassium Chloride Carbon Dioxide Anion Gap BUN Creatinine Estim Creat Clear Calc Est GFR (MDRD) Af Amer Est GFR (MDRD) Non-Af BUN/Creatinine Ratio Glucose Calcium Urine Color Urine Clarity Urine pH Ur Specific [place] Urine Protein Urine Glucose (UA) Urine Ketones Urine Occult Blood Urine Nitrite Urine Bilirubin Urine Urobilinogen Ur Leukocyte Esterase Urine RBC Urine WBC Ur Squamous Epith Cells Urine Bacteria Urine Mucus Urine Osmolality U Random Total Protein Ur Random Sodium 49 Urine Creatinine 140.00 Urine Potassium 42.0 Urine Chloride < 10 02/18/18 02/18/18 05:10 05:10 WBC 9.8 RBC 3.01 L Hgb 8.6 L Hct 27.5 L MCV 91.4 MCH 28.6 MCHC 31.3 L RDW 16.7 H RDW Differential 52.5 H Plt Count 148 L MPV 11.5 Immature Gran % (Auto) 0.300 Neut % (Auto) 86.7 H Lymph % (Auto) 7.8 L [place] % (Auto) 5.0 Eos % (Auto) 0.2 Baso % (Auto) 0.0 Absolute Neuts (auto) 8.5 H Absolute Lymphs (auto) 0.76 L Total Counted Not Reportable PT INR Sodium 139 Potassium 3.7 Chloride 103 Carbon Dioxide 24.0 Anion Gap 12 BUN 79 H Creatinine 2.30 H Estim Creat Clear Calc 25.50 Est GFR (MDRD) Af Amer 36 L Est GFR (MDRD) Non-Af 29 L BUN/Creatinine Ratio 34.3 H Glucose 116 H Calcium 7.2 L Urine Color Urine Clarity Urine pH Ur Specific [place] Urine Protein Urine Glucose (UA) Urine Ketones Urine Occult Blood Urine Nitrite Urine Bilirubin Urine Urobilinogen Ur Leukocyte Esterase Urine RBC Urine WBC Ur Squamous Epith Cells Urine Bacteria Urine Mucus Urine Osmolality U Random Total Protein Ur Random Sodium Urine Creatinine Urine Potassium Urine Chloride Medical Necessity - Tobacco Use Smoking Status: Former smoker Tobacco Use: Cigarettes Assessment/Plan All Active Problems Acute kidney failure (Acute) Hyperkalemia (Acute) Metabolic acidosis (Acute) Generalized weakness (Acute) Decreased oral intake (Acute) DIC (disseminated intravascular coagulation) (Resolved) Severe sepsis (Resolved) UTI (urinary tract infection) (Resolved) Coagulopathy (Acute) 1. Acute Kidney Injury on chronic kidney disease stage III-LUCAS due to dehydration. Urine benign. Improving with IV fluids. Nephrology following. Trend BMP. Spironolactone on hold. 2. Acute metabolic encephalopathy, secondary to #1-improved. 2. Metabolic acidosis-secondary to acute kidney injury. Bicarb drip. Improved. Nephrology following. 3. Hyperkalemia-resolved. Secondary to #1. Aldactone on hold. 4. Supratherapeutic INR-INR 16 on admission. 2.9 today. Coumadin resumed. Trend INR. 5. Leukocytosis-suspect reactive due to dehydration. Resolved with IV fluids. 6. Ischemic cardiomyopathy/CAD s/p stent/s/p AICD-follows with Dr. Clarke, [facility] cardiology. Prior EF reported to be 20%. Repeat echo pending. Continue aspirin, statin, metoprolol. Spironolactone on hold. 7. S/P Thoracic Aortic Aneurysm stent- 3 months ago. 8. Chronic atrial fibrillation-Coumadin resumed. Continue amiodarone, metoprolol. 9. Hyperlipidemia-continue statin. 10. Hypothyroidism-continue Synthroid regimen. Check TSH. 11. Depression-continue Paxil regimen. 12. Chronic normocytic anemia-stable. DVT prophylaxis- Coumadin. This patient was seen by FATIMAH Wilde under the supervision of Dr. Queen. <Reinaldo Queenkash - Last Filed: 02/18/18 14:10> Subjective: Patient denies any acute complaint with regard to shortness of breath or chest pressure. Patient has extensive cardiac disease including coronary artery disease status post stents, ischemic cardiomyopathy status post AICD. Discussed with the black studies professor Dr. Toledo yesterday. Objective: General: Oriented x3, Cooperative, Patient is awake and alert. HEENT: Atraumatic, PERRLA, EOMI, Normocephalic Oral: Dry Mucosa Neck: Supple, No JVD, Negative Carotid Bruits Lungs: No wheeze, Air entry is diminished in bilateral lung bases. Chronic inspiratory coarse rales present Cardiovascular: Regular rate, Regular Rhythm, Normal S1, Normal S2, systolic murmur present over left lower sternal border. AICD present secured entrance monitor showed intermittent paced rhythm Abdomen: Bowel Sounds Present, Soft, Non Tender, Non-Distended Extremities: No edema, Capillary Refill Less than 3 Seconds Skin: No rashes, No breakdown Musculoskeletal: No Tenderness to Palpation of Joints or Extremities, Arthritic Changes, Muscle Wasting Neurological: Cranial nerves II-XII grossly intact, Deep Tendon Reflexes 2+/4 and Symmetrical, Neuro grossly intact, Motor Exam 5/5 strength throughout Psych/Mental Status: Normal Affect, Appropriate - Physical Exam Vital Signs Temp Pulse Resp BP Pulse Ox 98.1 F 73 16 101/62 96 02/18/18 14:00 02/18/18 14:00 02/18/18 14:00 02/18/18 14:00 02/18/18 14:00 Oxygen Flow Rate (L/min) 2.5 Oxygen Delivery Method Room Air Weight: 150 lb 2.157 oz Body Mass Index (BMI) 22.8 Intake and Output for Last 24 Hours 02/16/18 02/17/18 02/18/18 23:59 23:59 23:59 Intake Total 167 / 167 1795 / 1795 1597 / 1597 Output Total 500 / 500 700 / 700 Balance 167 / 167 1295 / 1295 897 / 897 Laboratory Tests Past 24 Hrs 02/18/18 02/18/18 02/18/18 05:10 05:10 05:10 WBC 9.8 RBC 3.01 L Hgb 8.6 L Hct 27.5 L MCV 91.4 MCH 28.6 MCHC 31.3 L RDW 16.7 H RDW Differential 52.5 H Plt Count 148 L MPV 11.5 Immature Gran % (Auto) 0.300 Neut % (Auto) 86.7 H Lymph % (Auto) 7.8 L [place] % (Auto) 5.0 Eos % (Auto) 0.2 Baso % (Auto) 0.0 Absolute Neuts (auto) 8.5 H Absolute Lymphs (auto) 0.76 L Total Counted Not Reportable PT 30.1 H INR 2.9 Sodium 139 Potassium 3.7 Chloride 103 Carbon Dioxide 24.0 Anion Gap 12 BUN 79 H Creatinine 2.30 H Estim Creat Clear Calc 25.50 Est GFR (MDRD) Af Amer 36 L Est GFR (MDRD) Non-Af 29 L BUN/Creatinine Ratio 34.3 H Glucose 116 H Calcium 7.2 L TSH 02/18/18 05:10 WBC RBC Hgb Hct MCV MCH MCHC RDW RDW Differential Plt Count MPV Immature Gran % (Auto) Neut % (Auto) Lymph % (Auto) [place] % (Auto) Eos % (Auto) Baso % (Auto) Absolute Neuts (auto) Absolute Lymphs (auto) Total Counted PT INR Sodium Potassium Chloride Carbon Dioxide Anion Gap BUN Creatinine Estim Creat Clear Calc Est GFR (MDRD) Af Amer Est GFR (MDRD) Non-Af BUN/Creatinine Ratio Glucose Calcium TSH 0.51 Assessment/Plan This patient was seen in conjunction with RESIDENTIAL PROGRAM COORDINATOR, Valeri. I have independently interviewed and examined the patient and reviewed pertinent history, examination findings, laboratory and plan of management. I have reviewed the note and agree with the documented findings with the few additional points. In brief, patient is admitted for acute kidney injury on CKD stage III most rapidly secondary to dehydration/prerenal. Urine output 500 mL yesterday after 8 AM, Deras catheterization and today 700mL since midnight. Patient has +900 fluid balance. UA is negative for hematuria/pyuria mostly benign except proteinuria. Urine osmolarity 664, that is electively on higher side. Urine random protein is 37.5. Urine sodium 49, creatinine 140, K 42 and chloride less than 10. Drop in H&H from 11.1/37-8.6/27.5 but initial H&H from hemoconcentration. Patient is stable no obvious external bleeding. Severe acute high anion gap metabolic acidosis resolved. Bicarb is 24. K3.7. INR therapeutic. Coumadin resumed. Echo was done today and shows severely dilated LV, EF 15% distress 3 diastolic dysfunction. Severe global hypokinesis. RVSP 40 mmHg with 1-2+ TR. Mild MR. LA moderately enlarged. RA moderately enlarged. I have discussed my assessment with RESIDENTIAL PROGRAM COORDINATORValeri and orders have been reviewed. Code Visit Inpatient E&M: 33291 Subs Hosp L3
--- NOTE | 2018-02-18 09:29 | PN_ITS ---
<Valeri Thompson - Last Filed: 02/18/18 09:49> Patient Problems: Active and Suspected Problems Acute kidney failure (Acute) Hyperkalemia (Acute) Metabolic acidosis (Acute) Generalized weakness (Acute) Decreased oral intake (Acute) Subjective: Patient seen and examined. Echocardiogram completed. Patient complains of intermittent shortness of breath, patient states this has been ongoing. Denies other current complaints. - Physical Exam General: Alert, Oriented x3, Cooperative, No apparent distress HEENT: Atraumatic, PERRLA, EOMI, Normocephalic Oral: Moist Mucosa Neck: Supple, No JVD, Negative Carotid Bruits Lungs: Clear to auscultation, Normal air movement Cardiovascular: Regular rate, Regular Rhythm, Normal S1, Normal S2, No murmurs, - - Ventricular paced Abdomen: Bowel Sounds Present, Soft, Non Tender, Non-Distended Extremities: No clubbing, No cyanosis, Capillary Refill Less than 3 Seconds, Edema - +1 BLLE Skin: No rashes, No breakdown Musculoskeletal: No Tenderness to Palpation of Joints or Extremities Neurological: Cranial nerves II-XII grossly intact, Neuro grossly intact Psych/Mental Status: Normal Affect, Appropriate Vital Signs Temp Pulse Resp BP Pulse Ox 97.3 F L 76 18 105/63 95 02/18/18 08:45 02/18/18 08:45 02/18/18 08:45 02/18/18 08:45 02/18/18 08:45 Oxygen Flow Rate (L/min) 2.5 Oxygen Delivery Method Room Air Weight: 150 lb 2.157 oz Body Mass Index (BMI) 22.8 Intake and Output for Last 24 Hours 02/16/18 02/17/18 02/18/18 23:59 23:59 23:59 Intake Total 167 / 167 1795 / 1795 979 / 979 Output Total 500 / 500 400 / 400 Balance 167 / 167 1295 / 1295 579 / 579 Laboratory Tests Past 24 Hrs 02/17/18 02/17/18 02/17/18 09:20 09:20 09:20 WBC RBC Hgb Hct MCV MCH MCHC RDW RDW Differential Plt Count MPV Immature Gran % (Auto) Neut % (Auto) Lymph % (Auto) [place] % (Auto) Eos % (Auto) Baso % (Auto) Absolute Neuts (auto) Absolute Lymphs (auto) Total Counted PT INR Sodium Potassium Chloride Carbon Dioxide Anion Gap BUN Creatinine Estim Creat Clear Calc Est GFR (MDRD) Af Amer Est GFR (MDRD) Non-Af BUN/Creatinine Ratio Glucose Calcium Urine Color Yellow Urine Clarity Sl. Cloudy Urine pH 5.0 Ur Specific [place] 1.020 Urine Protein 30 H Urine Glucose (UA) Normal Urine Ketones Negative Urine Occult Blood 250 H Urine Nitrite Negative Urine Bilirubin Negative Urine Urobilinogen 1 H Ur Leukocyte Esterase Negative Urine RBC 0 SEEN Urine WBC 0 SEEN Ur Squamous Epith Cells 0 SEEN Urine Bacteria 0 SEEN Urine Mucus 0 SEEN Urine Osmolality 664 U Random Total Protein 37.5 H Ur Random Sodium Urine Creatinine Urine Potassium Urine Chloride 02/17/18 02/17/18 02/18/18 09:20 09:20 05:10 WBC RBC Hgb Hct MCV MCH MCHC RDW RDW Differential Plt Count MPV Immature Gran % (Auto) Neut % (Auto) Lymph % (Auto) [place] % (Auto) Eos % (Auto) Baso % (Auto) Absolute Neuts (auto) Absolute Lymphs (auto) Total Counted PT 30.1 H INR 2.9 Sodium Potassium Chloride Carbon Dioxide Anion Gap BUN Creatinine Estim Creat Clear Calc Est GFR (MDRD) Af Amer Est GFR (MDRD) Non-Af BUN/Creatinine Ratio Glucose Calcium Urine Color Urine Clarity Urine pH Ur Specific [place] Urine Protein Urine Glucose (UA) Urine Ketones Urine Occult Blood Urine Nitrite Urine Bilirubin Urine Urobilinogen Ur Leukocyte Esterase Urine RBC Urine WBC Ur Squamous Epith Cells Urine Bacteria Urine Mucus Urine Osmolality U Random Total Protein Ur Random Sodium 49 Urine Creatinine 140.00 Urine Potassium 42.0 Urine Chloride < 10 02/18/18 02/18/18 05:10 05:10 WBC 9.8 RBC 3.01 L Hgb 8.6 L Hct 27.5 L MCV 91.4 MCH 28.6 MCHC 31.3 L RDW 16.7 H RDW Differential 52.5 H Plt Count 148 L MPV 11.5 Immature Gran % (Auto) 0.300 Neut % (Auto) 86.7 H Lymph % (Auto) 7.8 L [place] % (Auto) 5.0 Eos % (Auto) 0.2 Baso % (Auto) 0.0 Absolute Neuts (auto) 8.5 H Absolute Lymphs (auto) 0.76 L Total Counted Not Reportable PT INR Sodium 139 Potassium 3.7 Chloride 103 Carbon Dioxide 24.0 Anion Gap 12 BUN 79 H Creatinine 2.30 H Estim Creat Clear Calc 25.50 Est GFR (MDRD) Af Amer 36 L Est GFR (MDRD) Non-Af 29 L BUN/Creatinine Ratio 34.3 H Glucose 116 H Calcium 7.2 L Urine Color Urine Clarity Urine pH Ur Specific [place] Urine Protein Urine Glucose (UA) Urine Ketones Urine Occult Blood Urine Nitrite Urine Bilirubin Urine Urobilinogen Ur Leukocyte Esterase Urine RBC Urine WBC Ur Squamous Epith Cells Urine Bacteria Urine Mucus Urine Osmolality U Random Total Protein Ur Random Sodium Urine Creatinine Urine Potassium Urine Chloride Medical Necessity - Tobacco Use Smoking Status: Former smoker Tobacco Use: Cigarettes Assessment/Plan All Active Problems Acute kidney failure (Acute) Hyperkalemia (Acute) Metabolic acidosis (Acute) Generalized weakness (Acute) Decreased oral intake (Acute) DIC (disseminated intravascular coagulation) (Resolved) Severe sepsis (Resolved) UTI (urinary tract infection) (Resolved) Coagulopathy (Acute) 1. Acute Kidney Injury on chronic kidney disease stage III-LUCAS due to dehydration. Urine benign. Improving with IV fluids. Nephrology following. Trend BMP. Spironolactone on hold. 2. Acute metabolic encephalopathy, secondary to #1-improved. 2. Metabolic acidosis-secondary to acute kidney injury. Bicarb drip. Improved. Nephrology following. 3. Hyperkalemia-resolved. Secondary to #1. Aldactone on hold. 4. Supratherapeutic INR-INR 16 on admission. 2.9 today. Coumadin resumed. Trend INR. 5. Leukocytosis-suspect reactive due to dehydration. Resolved with IV fluids. 6. Ischemic cardiomyopathy/CAD s/p stent/s/p AICD-follows with Dr. Clarke, [facility] cardiology. Prior EF reported to be 20%. Repeat echo pending. Continue aspirin, statin, metoprolol. Spironolactone on hold. 7. S/P Thoracic Aortic Aneurysm stent- 3 months ago. 8. Chronic atrial fibrillation-Coumadin resumed. Continue amiodarone, metoprolol. 9. Hyperlipidemia-continue statin. 10. Hypothyroidism-continue Synthroid regimen. Check TSH. 11. Depression-continue Paxil regimen. 12. Chronic normocytic anemia-stable. DVT prophylaxis- Coumadin. This patient was seen by FATIMAH Wilde under the supervision of Dr. Queen. <Reinaldo Queenkash - Last Filed: 02/18/18 14:10> Subjective: Patient denies any acute complaint with regard to shortness of breath or chest pressure. Patient has extensive cardiac disease including coronary artery disease status post stents, ischemic cardiomyopathy status post AICD. Discussed with the home inspector Dr. Toledo yesterday. Objective: General: Oriented x3, Cooperative, Patient is awake and alert. HEENT: Atraumatic, PERRLA, EOMI, Normocephalic Oral: Dry Mucosa Neck: Supple, No JVD, Negative Carotid Bruits Lungs: No wheeze, Air entry is diminished in bilateral lung bases. Chronic inspiratory coarse rales present Cardiovascular: Regular rate, Regular Rhythm, Normal S1, Normal S2, systolic murmur present over left lower sternal border. AICD present monitor worker showed intermittent paced rhythm Abdomen: Bowel Sounds Present, Soft, Non Tender, Non-Distended Extremities: No edema, Capillary Refill Less than 3 Seconds Skin: No rashes, No breakdown Musculoskeletal: No Tenderness to Palpation of Joints or Extremities, Arthritic Changes, Muscle Wasting Neurological: Cranial nerves II-XII grossly intact, Deep Tendon Reflexes 2+/4 and Symmetrical, Neuro grossly intact, Motor Exam 5/5 strength throughout Psych/Mental Status: Normal Affect, Appropriate - Physical Exam Vital Signs Temp Pulse Resp BP Pulse Ox 98.1 F 73 16 101/62 96 02/18/18 14:00 02/18/18 14:00 02/18/18 14:00 02/18/18 14:00 02/18/18 14:00 Oxygen Flow Rate (L/min) 2.5 Oxygen Delivery Method Room Air Weight: 150 lb 2.157 oz Body Mass Index (BMI) 22.8 Intake and Output for Last 24 Hours 02/16/18 02/17/18 02/18/18 23:59 23:59 23:59 Intake Total 167 / 167 1795 / 1795 1597 / 1597 Output Total 500 / 500 700 / 700 Balance 167 / 167 1295 / 1295 897 / 897 Laboratory Tests Past 24 Hrs 02/18/18 02/18/18 02/18/18 05:10 05:10 05:10 WBC 9.8 RBC 3.01 L Hgb 8.6 L Hct 27.5 L MCV 91.4 MCH 28.6 MCHC 31.3 L RDW 16.7 H RDW Differential 52.5 H Plt Count 148 L MPV 11.5 Immature Gran % (Auto) 0.300 Neut % (Auto) 86.7 H Lymph % (Auto) 7.8 L [place] % (Auto) 5.0 Eos % (Auto) 0.2 Baso % (Auto) 0.0 Absolute Neuts (auto) 8.5 H Absolute Lymphs (auto) 0.76 L Total Counted Not Reportable PT 30.1 H INR 2.9 Sodium 139 Potassium 3.7 Chloride 103 Carbon Dioxide 24.0 Anion Gap 12 BUN 79 H Creatinine 2.30 H Estim Creat Clear Calc 25.50 Est GFR (MDRD) Af Amer 36 L Est GFR (MDRD) Non-Af 29 L BUN/Creatinine Ratio 34.3 H Glucose 116 H Calcium 7.2 L TSH 02/18/18 05:10 WBC RBC Hgb Hct MCV MCH MCHC RDW RDW Differential Plt Count MPV Immature Gran % (Auto) Neut % (Auto) Lymph % (Auto) [place] % (Auto) Eos % (Auto) Baso % (Auto) Absolute Neuts (auto) Absolute Lymphs (auto) Total Counted PT INR Sodium Potassium Chloride Carbon Dioxide Anion Gap BUN Creatinine Estim Creat Clear Calc Est GFR (MDRD) Af Amer Est GFR (MDRD) Non-Af BUN/Creatinine Ratio Glucose Calcium TSH 0.51 Assessment/Plan This patient was seen in conjunction with FIELD SAMPLING TECHNICIAN, Valeri. I have independently interviewed and examined the patient and reviewed pertinent history, examination findings, laboratory and plan of management. I have reviewed the note and agree with the documented findings with the few additional points. In brief, patient is admitted for acute kidney injury on CKD stage III most rapidly secondary to dehydration/prerenal. Urine output 500 mL yesterday after 8 AM, Deras catheterization and today 700mL since midnight. Patient has +900 fluid balance. UA is negative for hematuria/pyuria mostly benign except proteinuria. Urine osmolarity 664, that is electively on higher side. Urine random protein is 37.5. Urine sodium 49, creatinine 140, K 42 and chloride less than 10. Drop in H&H from 11.1/37-8.6/27.5 but initial H&H from hemoconcentration. Patient is stable no obvious external bleeding. Severe acute high anion gap metabolic acidosis resolved. Bicarb is 24. K3.7. INR therapeutic. Coumadin resumed. Echo was done today and shows severely dilated LV, EF 15% distress 3 diastolic dysfunction. Severe global hypokinesis. RVSP 40 mmHg with 1-2+ TR. Mild MR. LA moderately enlarged. RA moderately enlarged. I have discussed my assessment with FIELD SAMPLING TECHNICIANValeri and orders have been reviewed. Code Visit Inpatient E&M: 14954 Subs Hosp L3
[2018-02-18] MEDS: Amiodarone 200 MG Tablet PO (10:03)
[2018-02-18] MEDS: Aspirin E.C. 81 MG Tablet PO (10:03)
[2018-02-18] MEDS: Metoprolol Tartrate 25 MG Tablet PO ×2 (10:04→22:42)
[2018-02-18 10:38] LABS: Thyroid Stim Hormone (TSH) 0.51 uIU/mL (0.358-3.74)
--- NOTE | 2018-02-18 11:55 | CASEMGMT ---
XI SHAW Face to Face with patient for initial transition planning/care coordination assessment. RN COLIN introduced self and role at [facility]. Patient lying in bed, alert and oriented. Patient willing to participate in assessment and is able to answer all questions appropriately. Care providers, pharmacy, and demographics verified. Patient wishes to discharge home and denied HHC at this time. Patient states he has no further needs or concerns at this time. CM to follow for discharge planning needs that may arise. PCP: Tawana Specialists: None Preferred Pharmacy: [facility] Insurance: A[employer]na [facility] Prescription Benefit: A[employer]na MCR Living Will/HPOA: Yes, Elva Coleman HPOA LNOK: Living Arrangements: Patient lives with in mobile home with 3 steps to enter home. Patient independent at home. Transportation: Self or DME/HHC: Patient has shower chair, raised toilet, and cane at home. Declines further needs. Disposition Plan: Patient to discharge home with family support and follow-up plans in place. Georgette SALEH, RN, CM
[2018-02-18 20:15] LABS: Hematocrit 28.7 % (40-54); Hemoglobin 8.8 g/dl (13.0-16.5)
[2018-02-18] MEDS: Atorvastatin Calcium 40 MG Tablet PO (22:42)
[2018-02-19] VITALS (8 sets, daily range): BP systolic 101–103; BP diastolic 69; PULSE 70–77; RESP 18–22; TEMP 36.2–36.3; O2SAT 94–99
[2018-02-19] MEDS: Levothyroxine 175 MCG Tablet PO (05:50)
[2018-02-19 05:57] LABS: Absolute Lymphocyte Count 0.94 X10^3/ul (0.83-4.51); Absolute Neutrophil Count 8.1 X10^3/uL (2.0-7.7); Basophil# 0.02 X10^3/uL; Basophil% 0.2 % (0-1); Eosinophil# 0.04 X10^3/uL; Eosinophils% 0.4 % (0-5); Hematocrit 27.6 % (40-54); Hemoglobin 8.7 g/dl (13.0-16.5); Lymphocyte # 0.94 X10^3/ul (4.0); Lymphocyte % 9.6 % (19-41); Mean Corp Hgb Conc 31.5 g/gl (32-36); Mean Corpuscular Hgb 29.1 pg (27.0-32.0); Mean Corpuscular Volume 92.3 fL (80-94); Mean Platelet Vol. 11.6 fl (6.2-12.0); Monocyte% 7.2 % (0-10); Neutrophil # 8.07 X10^3/uL (2.7-7.7); Neutrophil % 82.5 % (47-70); Platelet Count 148 K/mm3 (150-450); RBC Distribution Width CV 16.9 % (11.6-14.6); RBC Distribution Width SD 54.5 fl (35.1-43.9); Red Blood Count 2.99 M/mm3 (4.6-6.2); White Blood Count 9.8 K/mm3 (4.4-11.0)
[2018-02-19 06:02] LABS: International Normalized Ratio 2.4
[2018-02-19 06:10] LABS: POSITIVE COUNT NO; POSITIVE DIFFERENTIAL NO; POSITIVE MORPHOLOGY NO
[2018-02-19 06:22] LABS: Anion Gap 11 (5-15); BUN 73 mg/dL (7-18); BUN/Creat Ratio 38.6 RATIO (10-20); Calcium,Total 7.3 mg/dL (8.5-10.1); Chloride 103 mmol/L (98-107); Creatinine, Serum 1.89 mg/dL (0.70-1.30); EST Glomerular Filtration Rate 37 mL/min (>60); Est Glom Filt Rate - Afr Amer 45 mL/min (>60); Estimated Creatinine Clearance 31.03 ml/min; Glucose 95 mg/dL (74-106); Potassium 4.1 mmol/L (3.5-5.1); Sodium Level 139 mmol/L (136-145)
[2018-02-19] MEDS: Metoprolol Tartrate 25 MG Tablet PO (09:40)
[2018-02-19] MEDS: Amiodarone 200 MG Tablet PO (09:40)
[2018-02-19] MEDS: 0.9% NaCl Peripheral Flush Adult/Peds IV (09:51)
--- NOTE | 2018-02-19 10:28 | PCM.DC ---
- Discharge Diagnoses Current Active Problems: Current Active and Chronic Problems Acute kidney failure (Acute) Hyperkalemia (Acute) Metabolic acidosis (Acute) Generalized weakness (Acute) Decreased oral intake (Acute) You will use the following diet at home:: Cardiac Discharge Activity: Return to Normal Activity Call your doctor if you observe: Shortness of breath, Dizziness, Fainting spells, Chest pain Additional Instructions: You will need to HOLD your aspirin and coumadin until your scope next week. You will call Dr. Thompson's office (General Surgery) at [phone]. The plan will be for EGD/Colonoscopy on 02/25/18. Allergies/Adverse Reactions: Allergies No Known Allergies Allergy (Verified 02/16/18 16:35) Medications to take at Discharge Paroxetine HCl [Paxil] 40 mg PO QHS 05/11/15 Atorvastatin Calcium [Lipitor] 40 mg PO QHS 11/20/16 Levothyroxine [Synthroid] 175 mcg PO DAILY 11/20/16 Aspirin 81 mg PO DAILY #1 tab.chew 11/22/16 Metoprolol Tartrate [Lopressor (beta rambo)] 25 mg PO BID #60 tablet 11/22/16 Amiodarone HCl 200 mg PO DAILY 02/16/18 Aspirin E.C. [Ecotrin] 81 mg PO DAILY@0800 02/16/18 Cholecalciferol (Vitamin D3) [Vitamin D3] 2,000 unit PO DAILY 02/16/18 Melatonin 10 mg PO DAILY 02/16/18 Warfarin [Coumadin] 4 mg PO DAILY 02/16/18 Pantoprazole Sodium [Protonix] 40 mg PO DAILY #30 tablet 02/19/18 The following prescriptions were given: Pantoprazole Sodium [Protonix] 40 mg PO DAILY #30 tablet Primary Care Physician: Ignacio Gilliam DO [Primary Care Provider] - Please follow up with your Primary Care Physician in: 1 Week Test Results: Test results from this visit will be discussed in further detail at your follow-up appointment, if applicable. Please Follow Up With: Hussain Thompson MD - [phone] When: Call Wednesday to schedule EGD/Colonoscopy, plan for 02/25/18. Proposed Discharge Date: 02/19/18
--- NOTE | 2018-02-19 10:32 | DCINST_ITS ---
- Discharge Diagnoses Current Active Problems: Current Active and Chronic Problems Acute kidney failure (Acute) Hyperkalemia (Acute) Metabolic acidosis (Acute) Generalized weakness (Acute) Decreased oral intake (Acute) You will use the following diet at home:: Cardiac Discharge Activity: Return to Normal Activity Call your doctor if you observe: Shortness of breath, Dizziness, Fainting spells, Chest pain Additional Instructions: You will need to HOLD your aspirin and coumadin until your scope next week. You will call Dr. Thompson's office (General Surgery) at [phone]. The plan will be for EGD/Colonoscopy on 02/25/18. Allergies/Adverse Reactions: Allergies No Known Allergies Allergy (Verified 02/16/18 16:35) Medications to take at Discharge Paroxetine HCl [Paxil] 40 mg PO QHS 05/11/15 Atorvastatin Calcium [Lipitor] 40 mg PO QHS 11/20/16 Levothyroxine [Synthroid] 175 mcg PO DAILY 11/20/16 Aspirin 81 mg PO DAILY #1 tab.chew 11/22/16 Metoprolol Tartrate [Lopressor (beta rambo)] 25 mg PO BID #60 tablet 11/22/16 Amiodarone HCl 200 mg PO DAILY 02/16/18 Aspirin E.C. [Ecotrin] 81 mg PO DAILY@0800 02/16/18 Cholecalciferol (Vitamin D3) [Vitamin D3] 2,000 unit PO DAILY 02/16/18 Melatonin 10 mg PO DAILY 02/16/18 Warfarin [Coumadin] 4 mg PO DAILY 02/16/18 Pantoprazole Sodium [Protonix] 40 mg PO DAILY #30 tablet 02/19/18 The following prescriptions were given: Pantoprazole Sodium [Protonix] 40 mg PO DAILY #30 tablet Primary Care Physician: Ignacio Gilliam DO [Primary Care Provider] - Please follow up with your Primary Care Physician in: 1 Week Test Results: Test results from this visit will be discussed in further detail at your follow-up appointment, if applicable. Please Follow Up With: Hussain Thompson MD - [phone] When: Call Wednesday to schedule EGD/Colonoscopy, plan for 02/25/18. Proposed Discharge Date: 02/19/18
--- NOTE | 2018-02-19 10:43 | DS.PCM_ITS ---
Discharge Date and Diagnosis Date of Admission: 02/16/18 Date of Discharge: 02/19/18 - Primary Discharge Diagnosis Active and Suspected Problems 1. Acute kidney injury on chronic kidney disease stage III 2. Acute metabolic encephalopathy, secondary to #1 3. Metabolic acidosis secondary to acute kidney injury 4. Hyperkalemia, resolved 5. Supratherapeutic INR, resolved 6. Leukocytosis, suspect reactive due to dehydration 7. Acute on chronic normocytic anemia, positive occult blood stool, possible upper GI bleed, stable 8. Ischemic cardiomyopathy/CAD s/p stent/s/p AICD 9. Status post thoracic aortic aneurysm stent-3 months ago 10. Chronic atrial fibrillation 11. Hyperlipidemia 12. Hypothyroidism 13. Depression - Secondary Discharge Diagnosis Chronic Problems Anxiety and depression (Chronic) CAD (coronary artery disease) (Chronic) ICD (implantable cardioverter-defibrillator) in place (Chronic) CVA (cerebral infarction) (Chronic) Hyperlipidemia (Chronic) Hypothyroidism (Chronic) Systolic heart failure (Chronic) Chronic atrial fibrillation (Chronic) S/P CABG x 3 (Chronic) Pacemaker (Chronic) Hospital Course and Treatment Imaging Results: Diagnostic Data Chest X-Ray 02/17/18 07:52 IMPRESSION: Stable cardiomegaly. Mild pulmonary vascular congestion. Electronically Signed: Lenny Sotelofredoshreyas, at 8:38 EST Tel , Service support , Dr. Toledo- Nephrology Operations: None Procedures: 2-D Echocardiogram Summary of Care Provided: The patient is a 78 year old M admitted 02/16/2018 due to generalized weakness and decreased oral intake. 1. Acute Kidney Injury on chronic kidney disease stage III-LUCAS due to dehydration. Urine benign. Improved with IV fluids. Nephrology consulted during admission. Aldactone discontinued. Follow-up with primary care physician in 1 week. Recommend repeat BMP in 1 week. 2. Acute metabolic encephalopathy, secondary to #1-resolved. 2. Metabolic acidosis-secondary to acute kidney injury. Nephrology consulted. Bicarb drip discontinued. Resolved. 3. Hyperkalemia-resolved. Secondary to #1. Aldactone discontinued. 4. Supratherapeutic INR-INR 16 on admission. 2.4 at discharge. Coumadin on hold pending upcoming scope. 5. Leukocytosis-suspect reactive due to dehydration. Resolved with IV fluids. 6. Ischemic cardiomyopathy/CAD s/p stent/s/p AICD-follows with Dr. Clarke, F cardiology. Prior EF reported to be 20%. Repeat echo shows an EF of 15%, stage III diastolic dysfunction, severe global hypokinesis of the left ventricle, pulmonary artery systolic pressure 40 mmHg. Continue statin, metoprolol. Spironolactone discontinued. Aspirin on hold pending plan for upcoming scope. Patient will need close follow-up with primary soccer ball assembler. Follow-up with Dr. Clarke in 1-2 weeks. 7. S/P Thoracic Aortic Aneurysm stent- 3 months ago. 8. Chronic atrial fibrillation-Continue amiodarone, metoprolol. Hold Coumadin until scope. 9. Hyperlipidemia-continue statin. 10. Hypothyroidism-continue Synthroid regimen. TSH within normal limits. 11. Depression-continue Paxil regimen. 12. Acute on Chronic normocytic anemia-stool positive for occult blood. Possible upper GI bleed. Serial H&H has remained stable. Discussed with Dr. Thompson. Patient will call on Wednesday with plans for scope on 02/25/2018. Patient instructed to hold aspirin and Coumadin until further advised to continue by general surgery. He was started on Protonix 40 mg daily. General: Alert, Oriented x3, Cooperative, No apparent distress HEENT: Atraumatic, PERRLA, EOMI, Normocephalic Oral: Moist Mucosa Neck: Supple, No JVD, Negative Carotid Bruits Lungs: Clear to auscultation, Normal air movement Cardiovascular: Regular rate, Regular Rhythm, Normal S1, Normal S2, No murmurs, Ventricular paced Abdomen: Bowel Sounds Present, Soft, Non Tender, Non-Distended Extremities: No clubbing, No cyanosis, Capillary Refill Less than 3 Seconds, nonpitting edema bilateral lower extremities Skin: No rashes, No breakdown Musculoskeletal: No Tenderness to Palpation of Joints or Extremities Neurological: Cranial nerves II-XII grossly intact, Neuro grossly intact Psych/Mental Status: Normal Affect, Appropriate Patient seen and examined prior to discharge. Physical assessment as noted above. Patient is stable for discharge home with a follow-up recommendations as noted above. This patient was seen by FATIMAH Wilde under the supervision of Dr. Arguello. - Physical Exam Vital Signs Temp Pulse Resp BP Pulse Ox 97.1 F L 70 18 103/69 94 02/19/18 09:36 02/19/18 09:40 02/19/18 09:36 02/19/18 09:36 02/19/18 09:36 Oxygen Flow Rate (L/min) 2.5 Oxygen Delivery Method Room Air Weight: 150 lb 2.157 oz Body Mass Index (BMI) 22.8 Intake and Output for Last 24 Hours 02/17/18 02/18/18 02/19/18 23:59 23:59 23:59 Intake Total 1795 / 1795 2257 / 2257 30 / 30 Output Total 500 / 500 1100 / 1100 225 / 225 Balance 1295 / 1295 1157 / 1157 -195 / -195 Microbiology Past 72 Hours 02/18/18 15:20 Stool Occult Blood (RADHA) - Final Stool Occult Blood Positive Laboratory Tests Past 24 Hrs 02/18/18 02/18/18 02/19/18 05:10 20:04 05:24 WBC RBC Hgb 8.8 L Hct 28.7 L MCV MCH MCHC RDW RDW Differential Plt Count MPV Immature Gran % (Auto) Neut % (Auto) Lymph % (Auto) [place] % (Auto) Eos % (Auto) Baso % (Auto) Absolute Neuts (auto) Absolute Lymphs (auto) Total Counted PT 26.0 H INR 2.4 Sodium Potassium Chloride Carbon Dioxide Anion Gap BUN Creatinine Estim Creat Clear Calc Est GFR (MDRD) Af Amer Est GFR (MDRD) Non-Af BUN/Creatinine Ratio Glucose Calcium TSH 0.51 02/19/18 02/19/18 05:24 05:24 WBC 9.8 RBC 2.99 L Hgb 8.7 L Hct 27.6 L MCV 92.3 MCH 29.1 MCHC 31.5 L RDW 16.9 H RDW Differential 54.5 H Plt Count 148 L MPV 11.6 Immature Gran % (Auto) 0.100 Neut % (Auto) 82.5 H Lymph % (Auto) 9.6 L [place] % (Auto) 7.2 Eos % (Auto) 0.4 Baso % (Auto) 0.2 Absolute Neuts (auto) 8.1 H Absolute Lymphs (auto) 0.94 Total Counted Not Reportable PT INR Sodium 139 Potassium 4.1 Chloride 103 Carbon Dioxide 25.0 Anion Gap 11 BUN 73 H Creatinine 1.89 H Estim Creat Clear Calc 31.03 Est GFR (MDRD) Af Amer 45 L Est GFR (MDRD) Non-Af 37 L BUN/Creatinine Ratio 38.6 H Glucose 95 Calcium 7.3 L TSH Discharge Diet: Low fat/ Low Cholesterol Discharge Activity: Return to Normal Activity Call your doctor if you observe: Shortness of breath, Dizziness, Fainting spells, Chest pain Home Medications: Medications to take at Discharge Paroxetine HCl [Paxil] 40 mg PO QHS 05/11/15 Atorvastatin Calcium [Lipitor] 40 mg PO QHS 11/20/16 Levothyroxine [Synthroid] 175 mcg PO DAILY 11/20/16 Aspirin 81 mg PO DAILY #1 tab.chew 11/22/16 Metoprolol Tartrate [Lopressor (beta rambo)] 25 mg PO BID #60 tablet 11/22/16 Amiodarone HCl 200 mg PO DAILY 02/16/18 Aspirin E.C. [Ecotrin] 81 mg PO DAILY@0800 02/16/18 Cholecalciferol (Vitamin D3) [Vitamin D3] 2,000 unit PO DAILY 02/16/18 Melatonin 10 mg PO DAILY 02/16/18 Warfarin [Coumadin] 4 mg PO DAILY 02/16/18 Pantoprazole Sodium [Protonix] 40 mg PO DAILY #30 tablet 02/19/18 Following Prescrptions Were Given to Patient: Pantoprazole Sodium [Protonix] 40 mg PO DAILY #30 tablet Primary Care Physician: Ignacio Gilliam DO [Primary Care Provider] - Please follow up with your Primary Care Physician in: 1 Week Please Follow Up With: Hussain Thompson MD - [phone] When: Call Wednesday to schedule EGD/Colonoscopy, plan for 02/25/18. Please Follow Up With: Rolando Clarke MD When: 1-2 Weeks Disposition: Home Minutes spent on discharge:: 35 Patient Condition:: Stable Medical Necessity - Tobacco Use Smoking Status: Former smoker Tobacco Use: Cigarettes Meaningful Use Info Meaningful Use Diagnoses (Choose all that apply): None applicable
--- NOTE | 2018-02-23 09:50 | CASEMGMT ---
RN CM Discharge Follow-up Phone Call: NETO: Regis Strata: 4 Call Date: 02/23/18 Discharge Date: 02/19/18 Time of Call: 0944 Duration: 0 ? Admitting Diagnosis: Acute renal failure, hyperkalemia This RN CM attempted to contact pt via telephone to follow-up s/p inpatient discharge. Voicemail received and message left requesting a return call if pt has questions or concerns. Merrick Wharton RN
--- NOTE | 2018-02-23 15:23 | CASEMGMT ---
This RN CM received a return call from pt's in regard to pt's status since discharge. Pt's relays that the patient has been very weak and short of breath. States pt had been to see Dr. Gilliam this AM who was arranging for a walker and pulse ox study to be conducted at night. She has scheduled an appointment with Dr. Thompson for this Wednesday the and has contacted Dr. Hoskins's office but she is waiting for them to call her back with an appointment. She has been in contact with a previous home health nurse who is contacting Dr. Gilliam's office for resumption of home health care including physical therapy. Pt's denied needing any additional assistance. Merrick Wharton RN
== END 2018-02-19 12:56 | disposition home or self-care (01) | DRG 682 ==
LOC: ED 18:36 → PCU 18:50
PROVIDERS: Family Medicine; Internal Medicine; Internal Medicine Nephrology; Nurse Practitioner Family; Admitting Provider Internal Medicine; Emergency Provider Emergency Medicine; Family Provider Family Medicine; PCP Family Medicine; Visit Provider Internal Medicine
DX: N17.9 Acute kidney failure, unspecified (principal); G93.41 Metabolic encephalopathy; E87.2 Acidosis; K92.2 Gastrointestinal hemorrhage, unspecified; I25.5 Ischemic cardiomyopathy; I48.2 Chronic atrial fibrillation; I25.10 Atherosclerotic heart disease of native coronary artery without angina pectoris; E87.5 Hyperkalemia; E86.0 Dehydration; E78.5 Hyperlipidemia, unspecified; R79.1 Abnormal coagulation profile; E03.9 Hypothyroidism, unspecified; F32.9 Major depressive disorder, single episode, unspecified; D64.9 Anemia, unspecified; N18.3 Chronic kidney disease, stage 3 (moderate); F41.9 Anxiety disorder, unspecified; Z95.810 Presence of automatic (implantable) cardiac defibrillator; Z86.79 Personal history of other diseases of the circulatory system; Z95.1 Presence of aortocoronary bypass graft; Z95.5 Presence of coronary angioplasty implant and graft; Z79.01 Long term (current) use of anticoagulants; Z87.891 Personal history of nicotine dependence; Z79.899 Other long term (current) drug therapy
CPT/HCPCS: 36415; 36600; 71045; 80048; 81001; 82040; 82274; 82436; 82570; 82803; 83935; 84100; 84133; 84156; 84300; 84443; 84484; 85014; 85018; 85025; 85610; 86900; 93005; 93306; 97116; 97161; 97165; 97530; 97535; 97802; 99285; J7030; J7040; P9017; A4216; J0610; J3490

== ENCOUNTER 2018-02-28 12:47 | Observation (INO) | payer MEDICARE, SELFPAY ==
[2018-02-16 19:41] VITALS: BMI 22.8
[2018-02-28] VITALS (11 sets, daily range): BP systolic 100–124; BP diastolic 68–93; PULSE 71–89; RESP 14–24; TEMP 36.1–36.6; O2SAT 94–98; BMI 19.0; BMI 24.5
--- NOTE | 2018-02-28 13:05 | EKG12_ITS ---
Test Reason : ILLNESS Blood Pressure : / mmHG Vent. Rate : 085 BPM Atrial Rate : 064 BPM P-R Int : 000 ms QRS Dur : 166 ms QT Int : 446 ms P-R-T Axes : 000 -48 102 degrees QTc Int : 530 ms Atrial fibrillation Left axis deviation Left bundle branch block Abnormal ECG Confirmed by NERI VICTORIA, FARAZ ([id number]), electronic news gathering editor REGINA GONZALEZ ([id number]) on 03/08/2018 9:08:38 AM Referred By: LAZARUS Confirmed By:FARAZ HE MD
--- NOTE | 2018-02-28 13:13 | RAD_ITS ---
STUDY: X-RAY CHEST REASON FOR EXAM: Male, 78 years old. Chest pain. Lower extremity edema. TECHNIQUE: Single AP portable view of the chest. COMPARISON: Comparison is made with prior study dated February 17, 2018. FINDINGS: EKG electrodes are seen. The patient is status post covered stenting of the descending thoracic aorta. There is a mild degree of vascular congestion. There is no demonstrated pleural abnormality. Sternal cerclage wires and vascular clips are present from a prior sternotomy and coronary artery bypass graft procedure (CABG). A left-sided dual-chamber pacemaker is seen. Normal mediastinum and jose carlos. Normal visualized pulmonary arteries. There is atherosclerotic calcification of the aortic arch with tortuosity. There are degenerative changes of the visualized thoracic spine. Normal visualized ribs, clavicles, and shoulders. There is no demonstrated abnormality of the visualized soft tissue structures of the upper abdomen. RAD/Chest 1 View (Portable) IMPRESSION: Findings suggestive of mild degree of vascular congestion. Electronically Signed: Hitesh Farley MD at 13:52 EST Tel [phone], Service support ,
--- NOTE | 2018-02-28 13:38 | ED.DCSUM_ITS ---
- ER Visit Summary Date of Service: 02/28/18 Chief Complaint: [] Lower extremity edema for days History of Present Illness: The patient is a 78 M [] hx of CABG CAD CHF cardiac pacemaker possible defibrillator, recently in the hospital for weakness discharge per he was told to hold his Spironolactone until he seen by Dr. Hudson his financial planning consultant the has not been able to arrange that appointment she reports since discharge she has progressively worsening lower extremity edema to the point that he has trouble getting his shoes on trouble walking trouble fitting on his pants he denies chest pain shortness of breath fever a couple orthopnea although reports when he lays flat he seems to be slightly short of breath. She indicates he is having normal bowel bladder habits normal urinary output, patient has no complaints in the bed except for edema Physical Examination: [] 105/71, 94% room air sat General, no distress resting comfortably HEENT is generally unremarkable The neck is supple no adenopathy Cardiovascular, regular rate and rhythm Lungs, clear bilateral Abdomen, soft nontender Extremities, no clubbing cyanosis , 4 plus edema lateral lower extremities Neurologic, awake alert answering questions appropriately moving all 4 extremities Patient is resting comfortably bed no distress given all the above screening labs are obtained Labs are generally unremarkable kept the creatinine is about 2 it was a little higher on admission BNP 4500 the is concerned she cannot manage him at home given all the above he was given 20 mill grams Lasix IV and I have asked the hospice team for admission and further management Test Results: [] Emergency Department Course and Treatment: [] Treatment Plan: [] Disposition: [] Admit pending hospice evaluation Impression: [] Congestive heart failure, lower extremity edema, difficulty with ambulation renal insufficiency This note was generated with [employer] dictation software. It may contain incorrect words, spelling, and punctuation that were not noted in review of the chart prior to signing ED Disposition - Plan for ED Patient: Chief Complaint: Edema Referrals: Ignacio Gilliam DO [Primary Care Provider] -
[2018-02-28 13:56] LABS: Absolute Neutrophil Count 5.7 X10^3/uL (2.0-7.7); Basophil# 0.01 X10^3/uL; Basophil% 0.1 % (0-1); Eosinophil# 0.05 X10^3/uL; Eosinophils% 0.7 % (0-5); Hematocrit 31.2 % (40-54); Hemoglobin 9.4 g/dl (13.0-16.5); Lymphocyte % 12.7 % (19-41); Mean Corp Hgb Conc 30.1 g/gl (32-36); Mean Corpuscular Hgb 27.7 pg (27.0-32.0); Mean Platelet Vol. 10.5 fl (6.2-12.0); Monocyte# 0.45 X10^3/uL; Monocyte% 6.3 % (0-10); Neutrophil # 5.67 X10^3/uL (2.7-7.7); Neutrophil % 80.1 % (47-70); Platelet Count 151 K/mm3 (150-450); RBC Distribution Width CV 17.6 % (11.6-14.6); Red Blood Count 3.39 M/mm3 (4.6-6.2); White Blood Count 7.1 K/mm3 (4.4-11.0)
[2018-02-28 14:03] LABS: POSITIVE COUNT NO; POSITIVE DIFFERENTIAL NO; POSITIVE MORPHOLOGY NO
[2018-02-28 14:04] LABS: International Normalized Ratio 1.6; Prothrombin Time (Protime)PT. 19.4 SECONDS (11.7-14.9)
[2018-02-28 14:06] LABS: Anion Gap 10 (5-15); BUN 53 mg/dL (7-18); BUN/Creat Ratio 26.1 RATIO (10-20); Calcium,Total 8.7 mg/dL (8.5-10.1); Chloride 108 mmol/L (98-107); Creatinine, Serum 2.03 mg/dL (0.70-1.30); EST Glomerular Filtration Rate 34 mL/min (>60); Est Glom Filt Rate - Afr Amer 41 mL/min (>60); Estimated Creatinine Clearance 24.05 ml/min; Glucose 92 mg/dL (74-106); Potassium 4.4 mmol/L (3.5-5.1); Sodium Level 140 mmol/L (136-145)
[2018-02-28 14:18] LABS: BNP,B-Type NATRIURETIC PEPTIDE 4369.4 pg/mL (0-100)
[2018-02-28 15:34] LABS: Bacteria 0 SEEN /hpf (None Seen); Mucous, Urine 0 SEEN /hpf (<or=2+); Red Blood Cells-Urine 0 SEEN /hpf (0-5)
[2018-02-28 15:46] LABS: Color, Urine Yellow (Yellow); Glucose, Dipstick Normal (Normal); Ketone-Dipstick Negative (Negative); Leukocyte Esterase-Dipstick 25 /ul (Negative); Nitrite-Dipstick Negative (Negative); Occult Blood-Urine Negative /ul (Negative); Protein-Dipstick 30 mg/dl (Negative); Urine Clarity Clear (Clear); Urine Urobilinogen 1 mg/dl (Normal)
[2018-02-28 15:59] LABS: Urine Bilirubin Dipstick 1 mg/dL (Negative)
[2018-02-28 16:00] LABS: White Blood Cells 0-5 SEEN /hpf (0-5)
[2018-02-28 16:01] LABS: Squamous Epithelial Cells - UA 0-5 SEEN /hpf (0-5)
[2018-02-28] MEDS: Furosemide 20 MG/2 ML VIAL IV (16:21)
--- NOTE | 2018-02-28 16:27 | NURSING ---
103 JAREDAM CHF, EDEMA OBS
--- NOTE | 2018-02-28 16:45 | HP.PCM_ITS ---
History of Present Illness Date of Admission: 02/28/18 Chief Complaint: bilateral LE swelling, shortness of breath The patient is a 78 year old M an extensive past medical history including hypertension, heart failure with reduced ejection fraction status post ICD placement (EF of 15%), hypothyroidism. He was admitted through the ED on 02/28/2018 with a complaint of bilateral lower extremity swelling and shortness of breath. He was recently admitted and discharged on 02/19/2018 after being admitted for LUCAS on CKD due to dehydration, acute metabolic encephalopathy, hyperkalemia and coagulopathy as well as dehydration. Creatinine was at 1.89 at time of discharge was around his baseline from 3 on admission. On discharge, his spironolactone and other diuretics were held according to patient's . She noted that he was progressively becoming edematous in his lower extremities and was worsened to the point where he could not even but call his belt due to abdominal wall edema. She also noticed worsening shortness of breath. He denied any fever chills, cough or chest pain, abdominal pain, palpitations, diarrhea vomiting. She therefore decided to bring him into the ED today. The ED, he was noted to be tachypneic with respiratory rate in the 20s. Creatinine was 2.03 and BNP was 4369.4. CBC showed hemoglobin of 9.4. Chest x-ray showed evidence of mild degree of vascular congestion. Admitted to be managed for CHF exacerbation likely due to him being off his diuretics. [] Past Medical History Past Medical History (Chronic Problems): Chronic Problems Anxiety and depression (Chronic) CAD (coronary artery disease) (Chronic) ICD (implantable cardioverter-defibrillator) in place (Chronic) CVA (cerebral infarction) (Chronic) Hyperlipidemia (Chronic) Hypothyroidism (Chronic) Systolic heart failure (Chronic) Chronic atrial fibrillation (Chronic) S/P CABG x 3 (Chronic) Pacemaker (Chronic) Allergies No Known Allergies Allergy (Verified 02/28/18 12:50) Home Medications: Ambulatory Orders Medication Instructions Recorded Paroxetine HCl [Paxil] 40 mg PO QHS 05/11/15 Atorvastatin Calcium [Lipitor] 40 mg PO QHS 11/20/16 Levothyroxine [Synthroid] 175 mcg PO DAILY 11/20/16 Amiodarone HCl 200 mg PO DAILY 02/16/18 Cholecalciferol (Vitamin D3) 2,000 unit PO DAILY 02/16/18 [Vitamin D3] Melatonin 10 mg PO QHS 02/16/18 Metoprolol Tartrate [Lopressor 25 mg PO BID 02/28/18 (beta rambo)] Pantoprazole Sodium [Protonix] 40 mg PO DAILY 02/28/18 Surgical History: - - CABG x 3, PCI, T+A, Pacemaker/ICD, aortic aneurysm sten ting 2017 (?October) Psychiatric History: No pertinent psych hx Lives: Spouse/ Significant Other Smoking Status: Former smoker - *Family History Maternal History Items: Heart Disease, Stroke Paternal History Items: Heart Disease Review of Systems Constitutional: Denies: Chills, Fever, Malaise, Weakness, Weight Change Eyes: Denies: Blurred vision HEENT: Denies: Head Aches, Sinus Congestion, Sinus Drainage Cardiovascular: Reports: Edema, Orthopnea. Denies: Chest Pain, Claudication, Chest Pressure, Heaviness, Light Headedness, Palpitations, Syncope Respiratory: Reports: Shortness of Breath. Denies: Cough, Shortness of breath at rest, Sputum production, Wheezing Gastrointestinal: Denies: Abdominal Pain, Nausea, Vomiting Genitourinary: Denies: Dysuria Musculoskeletal: Denies: Joint Pain, Joint Tenderness Skin: Denies: Rash, Wounds Neurological: Denies: Numbness, Tingling, Focal weakness Psychiatric: Denies: Anxiety, Depression, Homicidal Ideations, Suicidal Ideations Hematologic/ Lymphatic: Denies: Easy Bruising, Easy Bleeding VTE Information - Inpt Only VTE Present on Admission: No VTE Pharm Prophylaxis ordered?: No Reason prophylaxis not ordered:: Treatment Not Indicated - on coumadin - Physical Exam General: Lethargic - keeps mumbling to himself, but is arousable and communicates well when aroused HEENT: Atraumatic, PERRLA, EOMI, Normocephalic Oral: Moist Mucosa Neck: Supple, No JVD, Negative Carotid Bruits Lungs: - - decreased breath sounds bibasally, with fine crackles auscultated Cardiovascular: Regular rate, Regular Rhythm, Normal S1, Normal S2, No murmurs Abdomen: Bowel Sounds Present, Soft, Non Tender Extremities: Edema - bilateral 3+ pitting pedal edema of both LEs Skin: No rashes, No breakdown Musculoskeletal: No Tenderness to Palpation of Joints or Extremities Lymphatic: No Cervical, Supraclavicular, or Inguinal Adenopathy Neurological: Cranial nerves II-XII grossly intact, Neuro grossly intact, Motor Exam 5/5 strength throughout Psych/Mental Status: - - drowsy Vital Signs Temp Pulse Resp BP Pulse Ox 97 F L 80 24 H 124/93 H 96 02/28/18 12:51 02/28/18 15:16 02/28/18 15:16 02/28/18 15:16 02/28/18 15:16 Oxygen Flow Rate (L/min) 2 Oxygen Delivery Method Nasal Cannula Weight: 125 lb Body Mass Index (BMI) 19.0 Laboratory Tests Past 24 Hrs 02/28/18 02/28/18 02/28/18 13:37 13:37 13:37 WBC 7.1 RBC 3.39 L Hgb 9.4 L Hct 31.2 L MCV 92.0 MCH 27.7 MCHC 30.1 L RDW 17.6 H RDW Differential 58.0 H Plt Count 151 MPV 10.5 Immature Gran % (Auto) 0.100 Neut % (Auto) 80.1 H Lymph % (Auto) 12.7 L [place] % (Auto) 6.3 Eos % (Auto) 0.7 Baso % (Auto) 0.1 Absolute Neuts (auto) 5.7 Absolute Lymphs (auto) 0.90 Total Counted Not Reportable PT INR Sodium 140 Potassium 4.4 Chloride 108 H Carbon Dioxide 22.0 Anion Gap 10 BUN 53 H Creatinine 2.03 H Estim Creat Clear Calc 24.05 Est GFR (MDRD) Af Amer 41 L Est GFR (MDRD) Non-Af 34 L BUN/Creatinine Ratio 26.1 H Glucose 92 Calcium 8.7 Troponin I 0.030 B-Natriuretic Peptide 4369.4 H Urine Color Urine Clarity Urine pH Ur Specific [place] Urine Protein Urine Glucose (UA) Urine Ketones Urine Occult Blood Urine Nitrite Urine Bilirubin Urine Urobilinogen Ur Leukocyte Esterase Urine RBC Urine WBC Ur Squamous Epith Cells Urine Bacteria Urine Mucus 02/28/18 02/28/18 13:37 15:28 WBC RBC Hgb Hct MCV MCH MCHC RDW RDW Differential Plt Count MPV Immature Gran % (Auto) Neut % (Auto) Lymph % (Auto) [place] % (Auto) Eos % (Auto) Baso % (Auto) Absolute Neuts (auto) Absolute Lymphs (auto) Total Counted PT 19.4 H INR 1.6 Sodium Potassium Chloride Carbon Dioxide Anion Gap BUN Creatinine Estim Creat Clear Calc Est GFR (MDRD) Af Amer Est GFR (MDRD) Non-Af BUN/Creatinine Ratio Glucose Calcium Troponin I B-Natriuretic Peptide Urine Color Yellow Urine Clarity Clear Urine pH 5.0 Ur Specific [place] 1.020 Urine Protein 30 H Urine Glucose (UA) Normal Urine Ketones Negative Urine Occult Blood Negative Urine Nitrite Negative Urine Bilirubin 1 H Urine Urobilinogen 1 H Ur Leukocyte Esterase 25 H Urine RBC 0 SEEN Urine WBC 0-5 SEEN Ur Squamous Epith Cells 0-5 SEEN Urine Bacteria 0 SEEN Urine Mucus 0 SEEN Diagnostic Data Chest X-Ray 02/28/18 13:13 IMPRESSION: Findings suggestive of mild degree of vascular congestion. Electronically Signed: Hitesh Farley MD at 13:52 EST Tel [phone], Service support , Assessment/Plan All Active Problems Acute kidney failure (Acute) Hyperkalemia (Acute) Metabolic acidosis (Acute) Generalized weakness (Acute) Decreased oral intake (Acute) DIC (disseminated intravascular coagulation) (Resolved) Severe sepsis (Resolved) UTI (urinary tract infection) (Resolved) Coagulopathy (Acute) 78-year-old male presenting with a complaint of worsening bilateral lower extremity edema and some shortness of breath. 1. Acute decompensated systolic and diastolic heart failure likely due to patient being off his diuretics * Recently discharged after being admitted for AK on CKD. States he was told to stop taking his spironolactone according to his he has not been taking all his diuretics. * Has bilateral lower extremity me to pitting pedal edema extending up to the thighs. BNP was 4369.4. Chest x-ray showed evidence of Mild vascular congestion * Admit to PCU with telemetry. * Creatinine is 2.03 which is around his baseline. * IV Lasix 40 mg twice daily. Potassium is 4.4 and will keep a close eye on it in light of his history of hyperkalemia. * Troponin is negative. Will cycle. * will not do 2D echocardiogram as he recently had one on 01/29/2018 which showed EF of 15% with stage III diastolic dysfunction and severely dilated left ventricle as well as severe global hypokinesis of left ventricle and pulmonary artery systolic pressure 40mmHg * continue metoprolol 25mg bid * fluid restriction to 1500cc daily * strict input and output monitoring * not on MAX-I/ARB o/a of history of hyperkalemia * 2. Hyperlipidemia: on atorvastatin 40mg qhs 3. Hypothyroidism: on synthroid. TSH checked 02/18/18 was 0.51 4. Afib: currently rate controlled. On amiodarone and metoprolol. Coumadin dced at last admission due to upcoming EGD for acute on chronic anemia. Stool was positive for occult blood. 5. CAD due to ischemic cardiomyopathy: on statin, metoprolol. Off aspirin due to positive occult blood in stool. 6. Normocytic anemia: Hb is 9.4. Will monitor. to have EGD o/a of history of positive occult blood in stool. DVT prophylaxis: SCDs o/a of history of positive occult blood in stool. Code status: Patient and counseled extensively about different types of CODE STATUS including full code, DNR CCA and DNR CCA. Patient elects to be full code. Total [id number] time 17 minutes. Code Visit Inpatient E&M: 87380 Subs Hosp L3 Procedures: 68238 Advncd Care Plan 30 Min
[2018-02-28] MEDS: 0.9% NaCl Peripheral Flush Adult/Peds IV (18:28)
[2018-02-28] MEDS: Furosemide 40 MG/4 ML Vial IV (18:28)
[2018-02-28] MEDS: Metoprolol Tartrate 25 MG Tablet PO (21:10)
[2018-02-28] MEDS: Atorvastatin Calcium 40 MG Tablet PO (21:10)
[2018-02-28] MEDS: MELATONIN 10 MG TABLET PO (21:10)
[2018-03-01] VITALS (9 sets, daily range): BP systolic 94–96; BP diastolic 58–63; PULSE 69–79; RESP 16–18; TEMP 36.1–36.7; O2SAT 94–100
[2018-03-01] MEDS: Levothyroxine 175 MCG Tablet PO (05:36)
[2018-03-01 06:03] LABS: Absolute Neutrophil Count 4.9 X10^3/uL (2.0-7.7); Basophil# 0.01 X10^3/uL; Basophil% 0.2 % (0-1); Eosinophil# 0.06 X10^3/uL; Hematocrit 26.9 % (40-54); Hemoglobin 8.3 g/dl (13.0-16.5); Lymphocyte % 14.3 % (19-41); Mean Corp Hgb Conc 30.9 g/gl (32-36); Mean Corpuscular Hgb 28.4 pg (27.0-32.0); Mean Corpuscular Volume 92.1 fL (80-94); Mean Platelet Vol. 10.9 fl (6.2-12.0); Monocyte# 0.39 X10^3/uL; Monocyte% 6.2 % (0-10); Neutrophil # 4.91 X10^3/uL (2.7-7.7); Platelet Count 120 K/mm3 (150-450); RBC Distribution Width CV 17.3 % (11.6-14.6); RBC Distribution Width SD 55.1 fl (35.1-43.9); Red Blood Count 2.92 M/mm3 (4.6-6.2); White Blood Count 6.3 K/mm3 (4.4-11.0)
[2018-03-01 06:08] LABS: POSITIVE COUNT NO; POSITIVE DIFFERENTIAL NO; POSITIVE MORPHOLOGY NO
[2018-03-01 06:21] LABS: Anion Gap 12 (5-15); BUN 52 mg/dL (7-18); BUN/Creat Ratio 24.6 RATIO (10-20); Calcium,Total 8.7 mg/dL (8.5-10.1); Chloride 110 mmol/L (98-107); Creatinine, Serum 2.11 mg/dL (0.70-1.30); EST Glomerular Filtration Rate 32 mL/min (>60); Est Glom Filt Rate - Afr Amer 39 mL/min (>60); Estimated Creatinine Clearance 27.91 ml/min; Glucose 80 mg/dL (74-106); Potassium 4.4 mmol/L (3.5-5.1); Sodium Level 145 mmol/L (136-145)
[2018-03-01] MEDS: Amiodarone 200 MG Tablet PO (09:12)
[2018-03-01] MEDS: Pantoprazole Sodium 40 MG Tablet PO (09:13)
[2018-03-01] MEDS: Metoprolol Tartrate 25 MG Tablet PO (09:13)
--- NOTE | 2018-03-01 09:54 | CASEMGMT ---
Addendum entered by Georgette Perla 03/01/18 11:20: Therapy recommending wheeled walker for pt at this time and once script signed, will send to [facility]. [facility] to follow home oxygen testing. Taina LAYNE CM Original Note: Readmission chart review: Pt was admitted 02/16-02/19 for LUCAS, coagulopathy, hyperkalemia-please see CM assessment completed by Kevin LAYNE CM on 02/18/18. According to f/u phone call note, pt has attended several f/u appt's since last admission. This RN CM into room to speak with pt and he is unsure whether HHC was set up by PCP or not and requests that this RN CM call at this time. Pt states no preference for DME company if pt qualifies for home oxygen. Call to pt's , Elva at this time and she states that pt has been set up with [facility] in the past for HHC and she is fine with them again at this time. also states no preference for DME company. Call to [facility] and they are aware of hx with pt and state they should be able to take pt and ask that referral be faxed at this time. Order placed in [facility] at this time and referral faxed to [facility]. Taina LAYNE CM
--- NOTE | 2018-03-01 13:59 | CHAPLAIN ---
Type of Pastoral Visit _x__ Initial Visit ___ Follow-up Visit ___ On-call Visit ___ General Patient Visit ___ Spiritual Assessment ___ Family Conference ___ Bereavement ___ Rapid Response ___ Code Blue ___ Other (describe below) Pastoral Care Referral From _x__ Patient ___ Family ___ Nurse ___ Physician ___ General Surgeon ___ Cable Tool Driller ___ Other (describe below) Sacrament/Intervention _x__ Active listening ___ Anointing ___ Hindu ___ Bereavement ___ Communion ___ Azeb exploration ___ _x__ Life review _x__ Prayer ___ Reconciliation ___ Sacrament of Sick _x__ Supportive presence ___ Wedding ___ Other (describe below) Pastoral Comments patient has limited memory of what happened or why he is in hospital; pt hesitated to answer some questions apparently because he could not come up with the answers
--- NOTE | 2018-03-01 14:23 | CASEMGMT ---
RN COLIN received script for FWW for patient. Patient does not qualify for home oxygen. [facility] sent [place] [facility] [place], and arranged for FWW to be delivered to [facility] prior to discharge.
--- NOTE | 2018-03-01 14:50 | DCINST_ITS ---
You will use the following diet at home:: No restrictions Your food should be the consistency of: Regular Your liquids should be the consistency of: Regular/Thin Discharge Activity: Return to Normal Activity Weight Bearing Status: Full weight bearing Allergies/Adverse Reactions: Allergies No Known Allergies Allergy (Verified 02/28/18 12:50) Medications to take at Discharge Paroxetine HCl [Paxil] 40 mg PO QHS 05/11/15 Atorvastatin Calcium [Lipitor] 40 mg PO QHS 11/20/16 Levothyroxine [Synthroid] 175 mcg PO DAILY 11/20/16 Amiodarone HCl 200 mg PO DAILY 02/16/18 Cholecalciferol (Vitamin D3) [Vitamin D3] 2,000 unit PO DAILY 02/16/18 Melatonin 10 mg PO QHS 02/16/18 Metoprolol Tartrate [Lopressor (beta rambo)] 25 mg PO BID 02/28/18 Pantoprazole Sodium [Protonix] 40 mg PO DAILY 02/28/18 Furosemide [Lasix] 40 mg PO DAILY #30 tablet 03/01/18 The following prescriptions were given: Furosemide [Lasix] 40 mg PO DAILY #30 tablet Primary Care Physician: Ignacio Gilliam DO [Primary Care Provider] - Please follow up with your Primary Care Physician in: in 3 weeks Test Results: Test results from this visit will be discussed in further detail at your follow- up appointment, if applicable. Please Follow Up With: Rolando Clarke MD When: this
--- NOTE | 2018-03-02 10:06 | CASEMGMT ---
H&P faxed to [facility] per request at this time. SStnaye LAYNE CM
--- NOTE | 2018-03-03 07:40 | PCM.DC.SUM ---
Discharge Date and Diagnosis Date of Admission: 02/28/18 Date of Discharge: 03/01/18 - Primary Discharge Diagnosis #1 acute on chronic systolic congestive heart failure #2 hyperlipidemia #3 ischemic cardiomyopathy #4 coronary artery disease #5 chronic atrial fibrillation #6 dementia #7 chronic kidney disease stage III #8 pulmonary hypertension #9 chronic anemia-etiology unclear - Secondary Discharge Diagnosis Chronic Problems Anxiety and depression (Chronic) CAD (coronary artery disease) (Chronic) ICD (implantable cardioverter-defibrillator) in place (Chronic) CVA (cerebral infarction) (Chronic) Hyperlipidemia (Chronic) Hypothyroidism (Chronic) Systolic heart failure (Chronic) Chronic atrial fibrillation (Chronic) S/P CABG x 3 (Chronic) Pacemaker (Chronic) Hospital Course and Treatment Operations: None Procedures: None Summary of Care Provided: The patient is a 78 year old M who was seen in the emergency room at [facility] with chief complaint of lower extremity edema for several days. Workup in the emergency room showed vascular congestion on his chest x-ray, his beta natruretic peptide was 4500, creatinine was 2.03 but patient has a history of chronic kidney disease. Hemoglobin was 9.4. Patient was placed and observation status on PCU, he was given IV Lasix, supplemental oxygen, and his medications were continued. Patient was able to be weaned to room air by the next day, he was able to maintain his pulse ox above 88% ambulating on room air. I had a discussion with the patient's , she could not decide whether the patient should go to an extended care facility temporarily for rehab or receive physical therapy at home which have been set up by her PCP. I contacted her PCP and he was going to check into whether the physical therapy had been set up at her home, patient's decided that she would take the patient home and avoid sending him to a [facility] facility. Patient has significant cognitive impairment. Physical exam: On examination he appeared in good health and spirits. Vital signs as documented. Skin warm and dry and without overt rashes. Neck without JVD. Lungs clear. Heart exam notable for regular rhythm-paced, no rubs or gallops. Abdomen unremarkable and without evidence of organomegaly, masses, or abdominal aortic enlargement. Extremities-edematous, +1 mm pitting edema is noted. Neuro: Cranial nerves II through XII grossly intact, no focal motor deficits are noted. Psych: Patient is alert, he is confused but responds to simple questions appropriately, he is a poor informant. Patient was discharged home in stable condition on 03/01/18 after he was seen and examined. I also contacted his heel buffer ( Dr. Clarke) and discussed his care, he was discharged on oral Lasix. His office visit with his heel buffer was scheduled for 03/03/18. Patient has been off his Coumadin since January of this year, he was scheduled to have an endoscopic procedure but I do not see any record of this in his medical record here at the hospital, I have notified his heel buffer about this and he will discussed this with the patient and his when he sees him in the office. - Physical Exam Vital Signs Temp Pulse Resp BP Pulse Ox 97.0 F L 71 16 95/63 100 03/01/18 16:04 03/01/18 16:04 03/01/18 16:04 03/01/18 16:04 03/01/18 16:04 Oxygen Flow Rate (L/min) [ 0 AMBULATING on Room Air] Oxygen Flow Rate (L/min) [At 0 REST on Room Air] Oxygen Flow Rate (L/min) 2 Oxygen Delivery Method Room Air Weight: 73 kg Body Mass Index (BMI) 24.5 Intake and Output for Last 24 Hours 03/01/18 03/02/18 03/03/18 23:59 23:59 23:59 Intake Total 595 / 595 Output Total 950 / 950 Balance -355 / -355 Discharge Activity: Return to Normal Activity Weight Bearing Status: Full weight bearing Home Medications: Medications to take at Discharge Paroxetine HCl [Paxil] 40 mg PO QHS 05/11/15 Atorvastatin Calcium [Lipitor] 40 mg PO QHS 11/20/16 Levothyroxine [Synthroid] 175 mcg PO DAILY 11/20/16 Amiodarone HCl 200 mg PO DAILY 02/16/18 Cholecalciferol (Vitamin D3) [Vitamin D3] 2,000 unit PO DAILY 02/16/18 Metoprolol Tartrate [Lopressor (beta rambo)] 25 mg PO BID 02/28/18 Pantoprazole Sodium [Protonix] 40 mg PO DAILY 02/28/18 Furosemide [Lasix] 40 mg PO DAILY #30 tablet 03/01/18 Hydroxyzine HCl 25 - 50 mg PO QHS #60 tablet 03/01/18 Following Prescrptions Were Given to Patient: Furosemide [Lasix] 40 mg PO DAILY #30 tablet Hydroxyzine HCl 25 - 50 mg PO QHS #60 tablet Primary Care Physician: Ignacio Gilliam DO [Primary Care Provider] - Please follow up with your Primary Care Physician in: in 3 weeks Please Follow Up With: Rolando Clarke MD When: this Please Follow Up With: Ignacio Gilliam DO Disposition: Home Minutes spent on discharge:: 31 Patient Condition:: Stable Medical Necessity - Tobacco Use Smoking Status: Former smoker Tobacco Use: Cigarettes, Pipe Meaningful Use Info Meaningful Use Diagnoses (Choose all that apply): CHF - CHF MAX/ARB ordered at discharge?: No Reason MAX/ARB not ordered?: Worsening renal dysfunctn Documented LVEF (%): 15 Code Visit OBSV E&M: 48568 Observation care discharge
--- NOTE | 2018-03-03 08:04 | DS.PCM_ITS ---
Discharge Date and Diagnosis Date of Admission: 02/28/18 Date of Discharge: 03/01/18 - Primary Discharge Diagnosis #1 acute on chronic systolic congestive heart failure #2 hyperlipidemia #3 ischemic cardiomyopathy #4 coronary artery disease #5 chronic atrial fibrillation #6 dementia #7 chronic kidney disease stage III #8 pulmonary hypertension #9 chronic anemia-etiology unclear - Secondary Discharge Diagnosis Chronic Problems Anxiety and depression (Chronic) CAD (coronary artery disease) (Chronic) ICD (implantable cardioverter-defibrillator) in place (Chronic) CVA (cerebral infarction) (Chronic) Hyperlipidemia (Chronic) Hypothyroidism (Chronic) Systolic heart failure (Chronic) Chronic atrial fibrillation (Chronic) S/P CABG x 3 (Chronic) Pacemaker (Chronic) Hospital Course and Treatment Operations: None Procedures: None Summary of Care Provided: The patient is a 78 year old M who was seen in the emergency room at [facility] with chief complaint of lower extremity edema for several days. Workup in the emergency room showed vascular congestion on his chest x- ray, his beta natruretic peptide was 4500, creatinine was 2.03 but patient has a history of chronic kidney disease. Hemoglobin was 9.4. Patient was placed and observation status on PCU, he was given IV Lasix, supplemental oxygen, and his medications were continued. Patient was able to be weaned to room air by the next day, he was able to maintain his pulse ox above 88% ambulating on room air. I had a discussion with the patient's , she could not decide whether the patient should go to an extended care facility temporarily for rehab or receive physical therapy at home which have been set up by her PCP. I contacted her PCP and he was going to check into whether the physical therapy had been set up at her home, patient's decided that she would take the patient home and avoid sending him to a half-way facility. Patient has significant cognitive impairment. Physical exam: On examination he appeared in good health and spirits. Vital signs as documented. Skin warm and dry and without overt rashes. Neck without JVD. Lungs clear. Heart exam notable for regular rhythm-paced, no rubs or gallops. Abdomen unremarkable and without evidence of organomegaly, masses, or abdominal aortic enlargement. Extremities-edematous, +1 mm pitting edema is noted. Neuro: Cranial nerves II through XII grossly intact, no focal motor deficits are noted. Psych: Patient is alert, he is confused but responds to simple questions appropriately, he is a poor informant. Patient was discharged home in stable condition on 03/01/18 after he was seen and examined. I also contacted his senior financial analyst ( Dr. Clarke) and discussed his care, he was discharged on oral Lasix. His office visit with his senior financial analyst was scheduled for 03/03/18. Patient has been off his Coumadin since January of this year, he was scheduled to have an endoscopic procedure but I do not see any record of this in his medical record here at the hospital, I have notified his senior financial analyst about this and he will discussed this with the patient and his when he sees him in the office. - Physical Exam Vital Signs Temp Pulse Resp BP Pulse Ox 97.0 F L 71 16 95/63 100 03/01/18 16:04 03/01/18 16:04 03/01/18 16:04 03/01/18 16:04 03/01/18 16:04 Oxygen Flow Rate (L/min) [ 0 AMBULATING on Room Air] Oxygen Flow Rate (L/min) [At 0 REST on Room Air] Oxygen Flow Rate (L/min) 2 Oxygen Delivery Method Room Air Weight: 73 kg Body Mass Index (BMI) 24.5 Intake and Output for Last 24 Hours 03/01/18 03/02/18 03/03/18 23:59 23:59 23:59 Intake Total 595 / 595 Output Total 950 / 950 Balance -355 / -355 Discharge Activity: Return to Normal Activity Weight Bearing Status: Full weight bearing Home Medications: Medications to take at Discharge Paroxetine HCl [Paxil] 40 mg PO QHS 05/11/15 Atorvastatin Calcium [Lipitor] 40 mg PO QHS 11/20/16 Levothyroxine [Synthroid] 175 mcg PO DAILY 11/20/16 Amiodarone HCl 200 mg PO DAILY 02/16/18 Cholecalciferol (Vitamin D3) [Vitamin D3] 2,000 unit PO DAILY 02/16/18 Metoprolol Tartrate [Lopressor (beta rambo)] 25 mg PO BID 02/28/18 Pantoprazole Sodium [Protonix] 40 mg PO DAILY 02/28/18 Furosemide [Lasix] 40 mg PO DAILY #30 tablet 03/01/18 Hydroxyzine HCl 25 - 50 mg PO QHS #60 tablet 03/01/18 Following Prescrptions Were Given to Patient: Furosemide [Lasix] 40 mg PO DAILY #30 tablet Hydroxyzine HCl 25 - 50 mg PO QHS #60 tablet Primary Care Physician: Ignacio Gilliam DO [Primary Care Provider] - Please follow up with your Primary Care Physician in: in 3 weeks Please Follow Up With: Rolando Clarke MD When: this Please Follow Up With: Ignacio Gilliam DO Disposition: Home Minutes spent on discharge:: 31 Patient Condition:: Stable Medical Necessity - Tobacco Use Smoking Status: Former smoker Tobacco Use: Cigarettes, Pipe Meaningful Use Info Meaningful Use Diagnoses (Choose all that apply): CHF - CHF MAX/ARB ordered at discharge?: No Reason MAX/ARB not ordered?: Worsening renal dysfunctn Documented LVEF (%): 15 Code Visit OBSV E&M: 39271 Observation care discharge
== END 2018-03-01 18:10 | disposition home or self-care (01) ==
LOC: ED 13:59 → PCU 16:07
PROVIDERS: Admitting Provider Student in an Organized Health Care Education/Training Program; Emergency Provider Emergency Medicine; Family Provider Family Medicine; PCP Family Medicine; Visit Provider Internal Medicine
DX: I13.0 Hypertensive heart and chronic kidney disease with heart failure and stage 1 through stage 4 chronic kidney disease, or unspecified chronic kidney disease (principal); I50.23 Acute on chronic systolic (congestive) heart failure; N18.3 Chronic kidney disease, stage 3 (moderate); E78.5 Hyperlipidemia, unspecified; I25.5 Ischemic cardiomyopathy; I25.10 Atherosclerotic heart disease of native coronary artery without angina pectoris; I48.2 Chronic atrial fibrillation; Z79.899 Other long term (current) drug therapy; I27.20 Pulmonary hypertension, unspecified; F03.90 Unspecified dementia, unspecified severity, without behavioral disturbance, psychotic disturbance, mood disturbance, and anxiety; F41.9 Anxiety disorder, unspecified; F32.9 Major depressive disorder, single episode, unspecified; Z95.810 Presence of automatic (implantable) cardiac defibrillator; E03.9 Hypothyroidism, unspecified; Z95.1 Presence of aortocoronary bypass graft; D64.9 Anemia, unspecified; Z87.891 Personal history of nicotine dependence
CPT/HCPCS: 36415; 71045; 80048; 81001; 83880; 84484; 85025; 85610; 93005; 96374; 96376; 97162; 97165; 97802; 99218; 99283; A4216; G0378; G8978; G8979; G8987; G8988; J1940